=== PATIENT | female | born 1960 | race Caucasian/White ===

== ENCOUNTER 2020-10-20 08:00 | Outpatient (CLI) | payer OTHER | END 2020-10-20 23:59 | disposition home or self-care (01) | LOC: LAB.R 08:00 | PROVIDERS: ATTEND Family Medicine | DX: L03.115 Cellulitis of right lower limb (principal) | CPT/HCPCS: 81599; 87070; 87075; 87205 ==

== ENCOUNTER 2021-05-07 14:27 | Outpatient (CLI) | payer OTHER | END 2021-05-07 14:28 | disposition critical access hospital (66) | LOC: EMS 14:27 | DX: Z04.3 Encounter for examination and observation following other accident (principal); M79.605 Pain in left leg | CPT/HCPCS: A0425; A0427 ==

== ENCOUNTER 2021-05-07 14:50 | Inpatient (IN) | payer OTHER ==
--- NOTE | 2021-05-07 14:56 | ED Physician Documentation ---
PD HPI LOWER EXT INJURY - Stated complaint Stated Complaint: HIP PX - History obtained from History obtained from: Patient - Additional information Additional information: Relatively healthy 61-year-old woman with history of right hip fracture tripped and fell in the garden store and landed directly on the left hip with severe pain with any motion. On arrival she has had 200 mcg of fentanyl and is comfortable. No other injuries. No head or neck injury. Review of Systems Ten Systems: 10 systems reviewed and negative Constitutional: reports: Reviewed and negative Eyes: reports: Reviewed and negative Ears: reports: Reviewed and negative PD PAST MEDICAL HISTORY - Present Medications Home Medications: Ambulatory Orders Medication Instructions Recorded Confirmed No Known Home Medications 05/07/21 05/07/21 - Allergies Allergies/Adverse Reactions: Allergies Allergy/AdvReac Type Severity Reaction Status Date / Time No Known Drug Allergies Allergy Verified 05/07/21 15:11 PD ED PE NORMAL - Vitals Vital signs reviewed: Yes - General General: Alert and oriented X 3, No acute distress, Other (Comfortable at rest but cries with any motion) - HEENT HEENT: PERRL, EOMI - Neck Neck: Supple, no meningeal sign, No bony TTP - Cardiac Cardiac: RRR, No murmur - Respiratory Respiratory: No respiratory distress, Clear bilaterally - Abdomen Abdomen: Soft, Non tender - Back Back: No CVA TTP, No spinal TTP - Derm Derm: Normal color, Warm and dry - Extremities Extremities: Other (External rotation of L hip. NVI distal) - Neuro Neuro: Alert and oriented X 3, Normal speech Results - Vitals Vitals: Vital Signs - 24 hr 05/07/21 05/07/21 14:50 16:00 Temperature 36.9 C Heart Rate 78 92 Respiratory 16 14 Rate Blood Pressure 132/81 H 153/62 H O2 Saturation 97 97 Oxygen O2 Source Room air - EKG (time done) 1606 Rate: Rate (enter#) (96) Rhythm: NSR [place]: Normal Intervals: Normal [place], Prolonged QT (500msec) QRS: Low voltage Ischemia: Normal ST segments - Labs Labs: Laboratory Tests 05/07/21 05/07/21 05/07/21 15:02 15:02 15:02 WBC 5.7 RBC 4.44 Hgb 13.0 Hct 39.6 MCV 89.2 MCH 29.3 MCHC 32.8 RDW 12.4 Plt Count 225 MPV 8.6 Neut # (Auto) 2.8 Lymph # (Auto) 2.2 [place] # (Auto) 0.5 Eos # (Auto) 0.1 Baso # (Auto) 0.0 Absolute Nucleated RBC 0.00 Nucleated RBC % 0.0 PT INR Sodium 137 Potassium 3.4 L Chloride 104 Carbon Dioxide 24 Anion Gap 9.0 BUN 17 Creatinine 0.9 Estimated GFR (MDRD) 63 L Glucose 100 Calcium 9.3 Magnesium 2.2 Total Bilirubin 0.7 AST 25 ALT 27 Alkaline Phosphatase 75 Total Protein 7.0 Albumin 4.1 Globulin 2.9 Albumin/Globulin Ratio 1.4 Nasal Adenovirus (PCR) Nasal B. parapertussis DNA (PCR) Nasal Coronavir 229E PCR Nasal Coronavir HKU1 PCR Nasal Coronavir NL63 PCR Nasal Coronavir OC43 PCR Nasal Enterovir/Rhinovir PCR Nasal Influenza B PCR Nasal Influenza A PCR Nasal Parainfluen 1 PCR Nasal Parainfluen 2 PCR Nasal Parainfluen 3 PCR Nasal Parainfluen 4 PCR Nasal RSV (PCR) Nasal B.pertussis DNA PCR Nasal C.pneumoniae (PCR) Paulino Human Metapneumo PCR Nasal M.pneumoniae (PCR) Nasal SARS-CoV-2 (PCR) Blood Type A POSITIVE Antibody Screen NEGATIVE 05/07/21 05/07/21 15:07 15:55 WBC RBC Hgb Hct MCV MCH MCHC RDW Plt Count MPV Neut # (Auto) Lymph # (Auto) [place] # (Auto) Eos # (Auto) Baso # (Auto) Absolute Nucleated RBC Nucleated RBC % PT 12.8 H INR 1.2 Sodium Potassium Chloride Carbon Dioxide Anion Gap BUN Creatinine Estimated GFR (MDRD) Glucose Calcium Magnesium Total Bilirubin AST ALT Alkaline Phosphatase Total Protein Albumin Globulin Albumin/Globulin Ratio Nasal Adenovirus (PCR) NOT DETECTED Nasal B. parapertussis DNA (PCR) NOT DETECTED Nasal Coronavir 229E PCR NOT DETECTED Nasal Coronavir HKU1 PCR NOT DETECTED Nasal Coronavir NL63 PCR NOT DETECTED Nasal Coronavir OC43 PCR NOT DETECTED Nasal Enterovir/Rhinovir PCR NOT DETECTED Nasal Influenza B PCR NOT DETECTED Nasal Influenza A PCR NOT DETECTED Nasal Parainfluen 1 PCR NOT DETECTED Nasal Parainfluen 2 PCR NOT DETECTED Nasal Parainfluen 3 PCR NOT DETECTED Nasal Parainfluen 4 PCR NOT DETECTED Nasal RSV (PCR) NOT DETECTED Nasal B.pertussis DNA PCR NOT DETECTED Nasal C.pneumoniae (PCR) NOT DETECTED Paulino Human Metapneumo PCR NOT DETECTED Nasal M.pneumoniae (PCR) NOT DETECTED Nasal SARS-CoV-2 (PCR) NOT DETECTED Blood Type Antibody Screen - Rads (name of study) 1v cxr Radiology: EMP read contemporaneously (NAD) Procedures - General procedure General procedure: Left-sided fascia iliac a block done with real-time ultrasound guidance with 8 mL of 0.5% ropivacaine. PD MEDICAL DECISION MAKING - ED course Complexity details: d/w system sales consultant (gian Singletary IM admit, 1600) ED course: Healthy 61-year-old woman with an isolated left hip injury and has a fracture on x-ray. Dr. Abernathy will fix it tomorrow. Dr. Morales is admitting. Departure - Departure Disposition: 66 [facility] DC/Xfer Clinical Impression: Closed left hip fracture Condition: Serious
[2021-05-07 15:13] LABS: BASOPHILS % (AUTO) 0.5 %; EOSINOPHILS # (AUTO) 0.1 10^3/uL (0.0-0.7); EOSINOPHILS % (AUTO) 2.3 %; HCT - HEMATOCRIT 39.6 % (37.0-47.0); LYMPHOCYTES # (AUTO) 2.2 10^3/uL (1.5-3.5); MEAN CORPUSCULAR HEMOGLOBIN 29.3 pg (27.0-31.0); MEAN CORPUSCULAR HGB CONC 32.8 g/dL (32.0-36.0); MEAN CORPUSCULAR VOLUME 89.2 fL (81.0-99.0); MEAN PLATELET VOLUME 8.6 fL (7.9-10.8); MONOCYTES # (AUTO) 0.5 10^3/uL (0.0-1.0); MONOCYTES % (AUTO) 7.9 %; NEUTROPHILS # (AUTO) 2.8 10^3/uL (1.5-6.6); NEUTROPHILS % (AUTO) 49.8 %; PLT - PLATELET COUNT 225 10^3/uL (130-450); RED BLOOD COUNT 4.44 10^6/uL (4.20-5.40); RED CELL DISTRIBUTION WIDTH 12.4 % (12.0-15.0); WHITE BLOOD COUNT 5.7 x10^3/uL (4.8-10.8)
[2021-05-07] MEDS ORDERED: ROPIVACAINE 0.5% PF 20 ML AMPULE SUBQ STA (15:15)
[2021-05-07] MEDS ORDERED: HYDROmorphone 1 MG/ML CARPUJECT IVP STA ×2 (15:15→16:40)
[2021-05-07 15:25] LABS: ALBUMIN 4.1 g/dL (3.2-5.5); ALBUMIN/GLOBULIN RATIO 1.4 (1.0-2.2); BILIRUBIN,TOTAL 0.7 mg/dL (0.2-1.0); CALCIUM 9.3 mg/dL (8.5-10.3); CREATININE 0.9 mg/dL (0.4-1.0); MAGNESIUM 2.2 mg/dL (1.7-2.8); POTASSIUM 3.4 mmol/L (3.5-5.0)
[2021-05-07] MEDS ORDERED: KETAMINE 500 MG/10 ML VIAL IVP STA (15:31)
[2021-05-07 16:04] LABS: INR 1.2 (0.8-1.2); PT - PROTHROMBIN TIME 12.8 secs (9.9-12.6)
[2021-05-07] MEDS ORDERED: LORazepam 2 MG/ML VIAL IVP STA (16:06)
--- NOTE | 2021-05-07 16:07 | XRAY Report ---
PROCEDURE: Hip w/Pelvis 2-3V LT INDICATIONS: hip inj TECHNIQUE: AP pelvis with lateral view(s) of the left hip(s). COMPARISON: None. FINDINGS: Bones: There is a moderately displaced subcapital left femoral neck fracture. No cecilia left hip dislocation can be seen. No cecilia fracture of the bones of the pelvis can be seen. Prior right femoral neck fracture can be seen, with pinning. Degenerative changes are seen throughout, including the visualized lower lumbar spine. Soft tissues: The visualized bowel gas pattern is normal. No suspicious soft tissue calcifications. IMPRESSION: Moderately displaced subcapital left femoral neck fracture. If it would be helpful for clinical management decision making, please consider a dedicated CT for fu rther evaluation. Reviewed by: Jorgito Brasher MD on 05/07/2021 3:05 PM ONELIA Approved by: Jorgito Brasher MD on 05/07/2021 3:05 PM ONELIA Station ID: [id number]
--- NOTE | 2021-05-07 16:08 | XRAY Report ---
PROCEDURE: Chest 1 View X-Ray INDICATIONS: Trauma TECHNIQUE: One view of the chest was acquired. COMPARISON: None FINDINGS: Surgical changes and devices: None. Lungs and pleura: No pleural effusions or pneumothorax can be seen on this supine study. However, th e inferior most right costophrenic angle is not included on this study. Lungs are clear. Mediastinum: Mediastinal contours appear normal. Heart size is normal. Bones and chest wall: No suspicious bony lesions. Age-appropriate degenerative changes are seen. R adiopaque foci can be seen involving the right axilla and the right chest wall. IMPRESSION: Limited plain film study demonstrating no acute abnormality. Reviewed by: Jorgito Brasher MD on 05/07/2021 3:06 PM ONELIA Approved by: Jorgito Brasher MD on 05/07/2021 3:06 PM ONELIA Station ID: [id number]
[2021-05-07 16:10] LABS: B. PARAPERTUSSIS- RESP PCR PAN NOT DETECTED; B. PERTUSSIS- RESP PCR PANEL NOT DETECTED; C. PNEUMONIAE- RESP PCR PANEL NOT DETECTED; CORONAVIRUS 229E-RESP PCR NOT DETECTED; CORONAVIRUS HKU1-RESP PCR NOT DETECTED; CORONAVIRUS NL63-RESP PCR NOT DETECTED; CORONAVIRUS OC43-RESP PCR NOT DETECTED; HUMAN METAPNEUMOVIRUS NOT DETECTED; INFLUENZA A- RESP PCR PANEL NOT DETECTED; INFLUENZA B - RESP PCR PANEL NOT DETECTED; M. PNEUMONIAE- RESP PCR PANEL NOT DETECTED; PARAINFLUENZA VIRUS 1 NOT DETECTED; PARAINFLUENZA VIRUS 2 NOT DETECTED; PARAINFLUENZA VIRUS 3 NOT DETECTED; PARAINFLUENZA VIRUS 4 NOT DETECTED; RHINOVIRUS/ENTEROVIRUS NOT DETECTED; RSV- RESP PCR PANEL NOT DETECTED; SARS-CoV-2 -RESP PCR PANEL NOT DETECTED
[2021-05-07] MEDS ORDERED: ONDANSETRON ODT 4 MG TABLET TL PRN (16:26)
[2021-05-07] MEDS ORDERED: POTASSIUM CHLORIDE 20 MEQ TABLET PO ONE (16:29)
--- NOTE | 2021-05-07 17:03 | HISTORY & PHYSICAL EXAMINATION ---
Chief Complaint - Chief Complaint Chief Complaint: fall with hip pain <MoralesZeny Ilda - Last Filed: 05/08/21 07:23> - Chief Complaint Chief Complaint: Fall with left hip pain. <Kemal Mejia - Last Filed: 05/08/21 07:25> History of Present Illness - Admitted From Admitted From:: garden store via EMS - History Obtained From Records Reviewed: [facility] History obtained from: Dr. Ibarra and patient Exam Limitations: none <Zeny Morales - Last Filed: 05/08/21 07:23> - Admitted From Admitted From:: Home <Kemal Mejia - Last Filed: 05/08/21 07:25> - History of Present Illness HPI Comment/Other: This is a 61-year-old female who has no major medical illnesses and is not on any medications. The only encounter I can find in our medical record system is a walk-in clinic visit in October 2020 where she was seen for cellulitis of the heel. They do not list a primary care provider for her. She does have a previous history of a fall with a hip fracture. Today she was in a garden store, and tripped over a wagon in the garden store, landed on her left hip with severe pain. She was brought in by ambulance. She required fentanyl because of the severe pain. She was seen by our emergency room provider where a temperature was 36.9. Heart rate 78. Respirations 16. Blood pressure 132/81. 97% saturated on room air. Physical exam had an alert oriented female, negative pulmonary/cardiac/abdomen. External rotation of the left hip. Distal pulses intact. Labs were essentially normal, coronavirus negative, and a hip film showed a moderately displaced subcapital left femoral neck fracture. The ER provider did speak to orthopedics. They are asking us to place the patient under our service for admission and they will see the patient in consult. From a preoperative cardiac evaluation perspective the patient has no history of [place], arrhythmia, atrial fibrillation, valvular heart disease, pulmonary disease or renal disease. This document was made in part using voice recognition software. While efforts are made to proofread this document, sound alike and grammatical errors may occur. (Zeny Morales) This is a 61-year-old female with no significant past medical history who presents today after a fall complaining of left hip pain. She was at her daughter's workplace when she stumbled over a handle on the ground and fell on her left side. She immediately complained of left-sided hip pain and minor left arm pain. She denies any syncope or loss of consciousness. She did not feel dizzy or lightheaded prior to the fall. She currently states that her left hip pain is controlled with the opiates that she is receiving. She states she fell back in July 2011 and suffered a right hip fracture at that time. She reports she is normally quite active. She denies any cardiac history including coronary artery disease, arrhythmia, heart failure. She is able to walk up a flight of stairs and do cleaning around the home without any chest pain. (Kemal Mejia) History - Past Medical History MRSA Hx?: No - Past Surgical History Ortho: reports: Hip replacement - Family & Social History Living arrangement: At home Social History Notes: never smoked, no hx of alcohol abuse. <Zeny Morales - Last Filed: 05/08/21 07:23> - Family & Social History Family History Comment/Other: Her mother had a history a history of breast cancer. She also had COPD and was a smoker. Her father had multiple strokes and ultimately from a large stroke. Social History Notes: She has never smoked and denies alcohol use and illicit drug use. She does not currently work. <Kemal Mejia - Last Filed: 05/08/21 07:25> Meds/Allgy <Zeny Morales - Last Filed: 05/08/21 07:23> <Kemal Mejia - Last Filed: 05/08/21 07:25> - Home Medications Home Medications: Ambulatory Orders Medication Instructions Recorded Confirmed No Known Home Medications 05/07/21 05/07/21 - Allergies Allergies/Adverse Reactions: Allergies Allergy/AdvReac Type Severity Reaction Status Date / Time No Known Drug Allergies Allergy Verified 05/07/21 15:11 Review of Systems - Constitutional Constitutional: denies: Fever, Chills - Cardiovascular Cariovascular: denies: Chest pain, Lightheadedness, Syncope, Exertional dyspnea, Decr. exercise tolerance - Respiratory Respiratory: denies: Cough, SOB at rest, SOB with exertion - Gastrointestinal Gastrointestinal: denies: Abdominal pain, Nausea, Vomiting - Genitourinary Genitourinary: denies: Dysuria, Frequency, Urgency, Hematuria - Musculoskeletal Musculoskeletal: reports: Limited range of motion, Joint pain. denies: Muscle pain - Integumentary Integumentary: denies: Rash - Neurological Neurological: reports: Headache. denies: General weakness, Focal weakness, Dizziness, Numbness - Hematologic/Lymphatic Hematologic/Lymphatic: denies: Bleeding tendencies - All Other Systems All Other Systems: reports: Reviewed and negative <Kemal Mejia - Last Filed: 05/08/21 07:25> <Zeny Morales - Last Filed: 05/08/21 07:23> Prior Level of Functionality: Independent with activities of daily living. Able to dress herself, feed herself, drive a car, pay bills, clean her house, etc. (Zeny Morales) Exam - Vital Signs Reviewed Vital Signs: Yes <Zeny Morales - Last Filed: 05/08/21 07:23> - Vital Signs Reviewed Vital Signs: Yes - Physical Exam General Appearance: positive: No acute distress, Alert Eyes Bilateral: positive: Normal inspection, Conjunctivae nml ENT: positive: ENT inspection nml Neck: positive: Nml inspection Respiratory: positive: No respiratory distress. negative: Wheezes, Rales Cardiovascular: positive: Regular rate & rhythm, No murmur. negative: Tachycardia Abdomen: positive: Non-tender, No distention. negative: Tenderness Skin: positive: Warm, Dry, Other (There is a small 1 cm abrasion over the left elbow.) Extremities: positive: No pedal edema, Other (The left lower extremity is shortened and externally rotated. No tenderness, edema or erythema over the left hip.) Neurologic/Psychiatric: positive: Sensation nml. negative: Disoriented to person, Disoriented to place <Kemal Mejia - Last Filed: 05/08/21 07:25> - Vital Signs Vital Signs: Vital Signs x48h Temp Pulse Pulse Resp BP BP Pulse Ox 05/07/21 18:04 36.4 C L 93 130/67 97 05/07/21 17:13 96 05/07/21 17:12 143/78 H 98 05/07/21 17:00 96 11 L 126/65 97 05/07/21 16:46 88 11 L 145/71 H 96 05/07/21 16:00 92 13 131/79 H 95 05/07/21 15:30 96 165/114 H 97 05/07/21 14:50 36.9 C 78 16 132/81 H 97 Conclusion/Plan - Problem List (1) Closed left hip fracture Conclusion/Plan: This is a simple mechanical fall with no nefarious history of syncope, vasovagal symptoms. She has no cardiac disease. She is on no medications. However she does have a history of a previous hip fracture with no documentation of osteoporosis. Plan: Inpatient admission Orthopedic consult Probable ORIF or pinning tomorrow She can eat dinner tonight and be n.p.o. after midnight Start DVT prophylaxis tomorrow Consider osteoporosis treatment that is definitive in the form of Reclast or Zometa in the next few days. Encourage calcium and vitamin D on a regular basis. Qualifiers: Encounter type: initial encounter Qualified Code(s): S72.002A - Fracture of unspecified part of neck of left femur, initial encounter for closed fracture (2) Fall due to stumbling Conclusion/Plan: Mechanical fall. Happening in a garden store as she tripped over a wagon. At this time I am not concerned about syncope or a work-up for arrhythmia. Qualifiers: Encounter type: initial encounter Qualified Code(s): W01.0XXA - Fall on same level from slipping, tripping and stumbling without subsequent striking against object, initial encounter - Lab Results Lab results reviewed: Yes Yelp Bones: 05/07/21 15:02 05/07/21 15:02 - Diagnostic Imaging Results Diagnostic Imaging Results: positive: Final report reviewed - EKG Results EKG Interpreted Independently: No EKG Comparison: No prior EKG <Zeny Morales - Last Filed: 05/08/21 07:23> - Problem List (1) Preoperative examination Conclusion/Plan: She reports no angina or dyspnea and is able to function greater than 4 METS. Her EKG reveals a sinus rhythm with a prolonged ID interval consistent with a first-degree AV block. Her QTC is prolonged. Her SOMMER perioperative risk score is 0.1%. At this point in time, she is medically optimized to proceed with surgical intervention. - Lab Results Fish Bones: 05/08/21 04:55 05/08/21 04:55 - EKG Results EKG Interpreted Independently: Yes <Kemal Mejia - Last Filed: 05/08/21 07:25> - EKG Results EKG Findings: Normal sinus rhythm. No Acute ischemic changes (Zeny Morales) Core Measures - Anticipated LOS I expect patient to be DC'd or transferred within 96 hours.: Yes - DVT/VTE - Prophylaxis VTE/DVT Device ordered at admit?: Yes <Zeny Morales - Last Filed: 05/08/21 07:23> - Anticipated LOS I expect patient to be DC'd or transferred within 96 hours.: Yes - DVT/VTE - Prophylaxis VTE/DVT Device ordered at admit?: Yes VTE/DVT Prophylaxis med ordered at admit?: Yes <Kemal Mejia - Last Filed: 05/08/21 07:25> - Issues Hospital Issues and Management Plan: 61-year-old female presents after mechanical fall found to the left hip fracture. She will be admitted for surgical intervention and pain control. (Kemal Mejia)
[2021-05-07] MEDS: MORPHINE 2 MG/ML CARPUJECT IVP PRN (18:06)
[2021-05-07] MEDS: SODIUM CHLORIDE FLUSH 0.9% 10 ML SYRINGE IVP PRN (18:06)
[2021-05-07] MEDS: SODIUM CHLORIDE FLUSH 0.9% 10 ML SYRINGE IVP SCH (18:14)
[2021-05-07] MEDS: ACETAMINOPHEN 325 MG TABLET PO PRN ×2 (18:53→22:51)
[2021-05-07] MEDS: oxyCODONE 5 MG TABLET PO PRN ×2 (18:53→22:51)
--- NOTE | 2021-05-07 18:54 | HISTORY & PHYSICAL EXAMINATION ---
HPI - History Obtained From History obtained from: Patient, Family Exam limitations: No limitations - History of Present Illness Severity at the worst: reports: Severe Pain Quality: reports: Sharp, Cramping Timing: reports: Abrupt onset HPI Comment/Other: This is a 61-year-old woman who sustained a ground level fall at [email or web address] in [place] approximately 2:15 PM today. She tripped over a wagon handle and fell onto the gravel, left side. She had immediate pain to the left hip area and inability to bear weight on her left leg. Her daughter is employed at [employer] and was working today but did not witness the fall. She was brought to [facility] by emergency transport. She is noted some mild pain to left elbow but most of her pain is to the left hip. She denies chest pain, shortness of breath, dizziness or syncope associated with the fall. She states she was not looking at the ground when she tripped over the wagon handle. She has had a previous ground-level fall with fracture of her femoral neck right hip in 2010. The fall in 2010 occurred at the [employer]. The patient's general physical activity has gradually declined over the past 10 years. Most of her activities are sedentary including crafts and hobbies at home. She has gained weight and does have a family history of obesity. The patient general health has been relatively good but she does not see physicians.He denies previous problems to her left hip. She has had some pain to her right hip. PMH/PSH - Past Medical History MRSA Hx?: No - Past Surgical History Ortho: positive: Hip replacement Social & Family Hx - Social History Does the pt smoke?: No Smoking Status: Never smoker Does the pt drink ETOH?: No Does the pt have substance abuse?: No Meds/Allgy - Home Medications Home Medications: Ambulatory Orders Medication Instructions Recorded Confirmed No Known Home Medications 05/07/21 05/07/21 - Allergies Allergies/Adverse Reactions: Allergies Allergy/AdvReac Type Severity Reaction Status Date / Time No Known Drug Allergies Allergy Verified 05/07/21 15:11 Exam - Vital Signs Vital Signs: Vital Signs x48h Temp Pulse Pulse Resp BP BP Pulse Ox 05/07/21 18:04 36.4 C L 93 130/67 97 05/07/21 17:13 96 05/07/21 17:12 143/78 H 98 05/07/21 17:00 96 11 L 126/65 97 05/07/21 16:46 88 11 L 145/71 H 96 05/07/21 16:00 92 13 131/79 H 95 05/07/21 15:30 96 165/114 H 97 05/07/21 14:50 36.9 C 78 16 132/81 H 97 - Physical Exam General Appearance: positive: Severe distress Neck: positive: Nml inspection Respiratory: positive: Chest non-tender, No respiratory distress Cardiovascular: positive: Regular rate & rhythm Peripheral Pulses: positive: 2+ Abdomen: positive: Non-tender Skin: positive: Color nml, Warm. negative: Dry (Marked pain any movement to left hip; shortening and external rotation left leg. 4 to 5 cm area of ecchymosis without hematoma just below greater trochanter left hip. Left elbow with mild tenderness and pain with movement) Neurologic/Psychiatric: positive: Oriented x3, Motor nml, Sensation nml Results - Lab Results Fish Bones: 05/07/21 15:02 05/07/21 15:02 Other Lab Results: Lab Results x24hrs 05/07/21 05/07/21 05/07/21 Range/Units 15:55 15:07 15:02 WBC (4.8-10.8) x10^3/uL RBC (4.20-5.40) 10^6/uL Hgb (12.0-16.0) g/dL Hct (37.0-47.0) % MCV (81.0-99.0) fL MCH (27.0-31.0) pg MCHC (32.0-36.0) g/dL RDW (12.0-15.0) % Plt Count (130-450) 10^3/uL MPV (7.9-10.8) fL Neut # (Auto) (1.5-6.6) 10^3/uL Lymph # (Auto) (1.5-3.5) 10^3/uL Evangeline # (Auto) (0.0-1.0) 10^3/uL Eos # (Auto) (0.0-0.7) 10^3/uL Baso # (Auto) (0.0-0.1) 10^3/uL Absolute Nucleated RBC x10^3/uL Nucleated RBC % /100WBC PT 12.8 H (9.9-12.6) secs INR 1.2 (0.8-1.2) Sodium (135-145) mmol/L Potassium (3.5-5.0) mmol/L Chloride (101-111) mmol/L Carbon Dioxide (21-32) mmol/L Anion Gap (6-13) BUN (6-20) mg/dL Creatinine (0.4-1.0) mg/dL Estimated GFR (MDRD) (>89) Glucose (70-100) mg/dL Calcium (8.5-10.3) mg/dL Magnesium (1.7-2.8) mg/dL Total Bilirubin (0.2-1.0) mg/dL AST (10-42) IU/L ALT (10-60) IU/L Alkaline Phosphatase (42-121) IU/L Total Protein (6.7-8.2) g/dL Albumin (3.2-5.5) g/dL Globulin (2.1-4.2) g/dL Albumin/Globulin Ratio (1.0-2.2) Nasal Adenovirus (PCR) NOT DETECTED Nasal B. parapertussis DNA (PCR) NOT DETECTED Nasal Coronavir 229E PCR NOT DETECTED Nasal Coronavir HKU1 PCR NOT DETECTED Nasal Coronavir NL63 PCR NOT DETECTED Nasal Coronavir OC43 PCR NOT DETECTED Nasal Enterovir/Rhinovir PCR NOT DETECTED Nasal Influenza B PCR NOT DETECTED Nasal Influenza A PCR NOT DETECTED Nasal Parainfluen 1 PCR NOT DETECTED Nasal Parainfluen 2 PCR NOT DETECTED Nasal Parainfluen 3 PCR NOT DETECTED Nasal Parainfluen 4 PCR NOT DETECTED Nasal RSV (PCR) NOT DETECTED Nasal B.pertussis DNA PCR NOT DETECTED Nasal C.pneumoniae (PCR) NOT DETECTED Paulino Human Metapneumo PCR NOT DETECTED Nasal M.pneumoniae (PCR) NOT DETECTED Nasal SARS-CoV-2 (PCR) NOT DETECTED Blood Type A POSITIVE Antibody Screen NEGATIVE 05/07/21 05/07/21 Range/Units 15:02 15:02 WBC 5.7 (4.8-10.8) x10^3/uL RBC 4.44 (4.20-5.40) 10^6/uL Hgb 13.0 (12.0-16.0) g/dL Hct 39.6 (37.0-47.0) % MCV 89.2 (81.0-99.0) fL MCH 29.3 (27.0-31.0) pg MCHC 32.8 (32.0-36.0) g/dL RDW 12.4 (12.0-15.0) % Plt Count 225 (130-450) 10^3/uL MPV 8.6 (7.9-10.8) fL Neut # (Auto) 2.8 (1.5-6.6) 10^3/uL Lymph # (Auto) 2.2 (1.5-3.5) 10^3/uL Evangeline # (Auto) 0.5 (0.0-1.0) 10^3/uL Eos # (Auto) 0.1 (0.0-0.7) 10^3/uL Baso # (Auto) 0.0 (0.0-0.1) 10^3/uL Absolute Nucleated RBC 0.00 x10^3/uL Nucleated RBC % 0.0 /100WBC PT (9.9-12.6) secs INR (0.8-1.2) Sodium 137 (135-145) mmol/L Potassium 3.4 L (3.5-5.0) mmol/L Chloride 104 (101-111) mmol/L Carbon Dioxide 24 (21-32) mmol/L Anion Gap 9.0 (6-13) BUN 17 (6-20) mg/dL Creatinine 0.9 (0.4-1.0) mg/dL Estimated GFR (MDRD) 63 L (>89) Glucose 100 (70-100) mg/dL Calcium 9.3 (8.5-10.3) mg/dL Magnesium 2.2 (1.7-2.8) mg/dL Total Bilirubin 0.7 (0.2-1.0) mg/dL AST 25 (10-42) IU/L ALT 27 (10-60) IU/L Alkaline Phosphatase 75 (42-121) IU/L Total Protein 7.0 (6.7-8.2) g/dL Albumin 4.1 (3.2-5.5) g/dL Globulin 2.9 (2.1-4.2) g/dL Albumin/Globulin Ratio 1.4 (1.0-2.2) Nasal Adenovirus (PCR) Nasal B. parapertussis DNA (PCR) Nasal Coronavir 229E PCR Nasal Coronavir HKU1 PCR Nasal Coronavir NL63 PCR Nasal Coronavir OC43 PCR Nasal Enterovir/Rhinovir PCR Nasal Influenza B PCR Nasal Influenza A PCR Nasal Parainfluen 1 PCR Nasal Parainfluen 2 PCR Nasal Parainfluen 3 PCR Nasal Parainfluen 4 PCR Nasal RSV (PCR) Nasal B.pertussis DNA PCR Nasal C.pneumoniae (PCR) Paulino Human Metapneumo PCR Nasal M.pneumoniae (PCR) Nasal SARS-CoV-2 (PCR) Blood Type Antibody Screen - Diagnostic Imaging Results Diagnostic Imaging Results: negative: Read independently (Completely displaced femoral neck fracture left hip) Impression/Plan - Problem List Problem List: 1. Displaced femoral neck fracture left hip I discussed the risks, goals and likelihood of achieving goals, alternatives of surgery, disability and rarely . The plan is a hemiarthroplasty of the left hip. Her immediate complications are infection, dislocation and periprosthetic fracture. Other acute complications are adverse reaction to medication, anesthesia, pulmonary embolus, myocardial infarction. Long-term complications are potential need for revision arthroplasty. Patient is in agreement to the surgery has signed informed consent. Also discussed the same with the daughter who was present and she is in agreement. 2. Obesity 3. Osteoporosis This needs to be treated by primary care 4. Left elbow pain: We will order x-ray of left elbow Patient has been evaluated by her hospitalist; no contraindications to surgery. The plan is to do her surgery tomorrow.
--- NOTE | 2021-05-07 20:27 | XRAY Report ---
PROCEDURE: Elbow 3 View LT INDICATIONS: pain left elbow after fall TECHNIQUE: 3 views of the elbow were acquired. COMPARISON: None. FINDINGS: Bones: No definite fractures or dislocations but there is mild irregularity on one of the 3 views of the radial head, worrisome for representing an occult fracture.. No suspicious bony lesions. Soft tissues: Moderately large anterior elbow joint effusion. No suspicious soft tissue calcificatio ns. IMPRESSION: No definite osseous trauma found however there is a relatively large joint effusion which generally i s associated with fracture that is not visualized in this clinical circumstance. Follow-up delayed pl ain films may assist in identifying the site of injury. Presumed fracture until proven otherwise. MR scanning provides the most accurate detection for hidden fracture through the bones and soft tissues. It is appreciably more accurate than CT scanning. Follow-up elective MR scanning may be warranted. T his also would identify accurately evidence of ligamentous injury.. Reviewed by: Justino Puente MD on 05/07/2021 8:26 PM PDT Approved by: Justino Puente MD on 05/07/2021 8:26 PM PDT Station ID: [id number]
--- NOTE | 2021-05-07 21:17 | ANESTHESIA ---
Pre-Anesthesia VS, & Labs - Diagnosis Left Hip Fracture - Procedure Left Hip randall arthroplasty Vital Signs: Temp Pulse Resp BP Pulse Ox 36.4 C L 93 11 L 130/67 97 05/07/21 18:04 05/07/21 18:04 05/07/21 17:00 05/07/21 18:04 05/07/21 18:04 Height: 5 ft 11 in Weight (kg): 101.5 kg Body Mass Index: 31.1 BMI Classification: Obese - NPO >8 hours - Is Patient ?: No - Lab Results Current Lab Results: Laboratory Tests 05/07/21 15:55: PT 12.8 H, INR 1.2 05/07/21 15:02: Blood Type A POSITIVE, Antibody Screen NEGATIVE 05/07/21 15:02: Sodium 137, Potassium 3.4 L, Chloride 104, Carbon Dioxide 24, Anion Gap 9.0, BUN 17, Creatinine 0.9, Estimated GFR (MDRD) 63 L, Glucose 100, Calcium 9.3, Magnesium 2.2, Total Bilirubin 0.7, AST 25, ALT 27, Alkaline Phosphatase 75, Total Protein 7.0, Albumin 4.1, Globulin 2.9, Albumin/Globulin Ratio 1.4 05/07/21 15:02: WBC 5.7, RBC 4.44, Hgb 13.0, Hct 39.6, MCV 89.2, MCH 29.3, MCHC 32.8, RDW 12.4, Plt Count 225, MPV 8.6, Neut # (Auto) 2.8, Lymph # (Auto) 2.2, [place] # (Auto) 0.5, Eos # (Auto) 0.1, Baso # (Auto) 0.0, Absolute Nucleated RBC 0.00, Nucleated RBC % 0.0 Lab results reviewed: Yes Fish Bones: 05/08/21 04:55 05/08/21 04:55 Home Medications and Allergies Home Medications: Ambulatory Orders No Known Home Medications 05/07/21 Active Medications Acetaminophen (Acetaminophen 325 Mg Tablet) 650 mg PO Q4HR PRN PRN Reason: Pain 1 to 4 Last Admin: 05/07/21 18:53 Dose: 650 mg Documented by: Morphine Sulfate (Morphine 2 Mg/Ml Carpuject) 2 mg IVP Q2HR PRN PRN Reason: Pain 8 to 10 Last Admin: 05/07/21 18:06 Dose: 2 mg Documented by: Ondansetron HCl (Ondansetron Odt 4 Mg Tablet) 4 mg TL Q6HR PRN PRN Reason: Nausea / Vomiting Ondansetron HCl (Ondansetron 4 Mg/2 Ml Vial) 4 mg IVP Q6HR PRN PRN Reason: Nausea / Vomiting Oxycodone HCl (Oxycodone 5 Mg Tablet) 5 mg PO Q4HR PRN PRN Reason: Pain 5 to 7 Last Admin: 05/07/21 18:53 Dose: 5 mg Documented by: Sodium Chloride (Sodium Chloride Flush 0.9% 10 Ml Syringe) 10 ml IVP PRN PRN PRN Reason: NEEDED PER PROVIDER ORDERS Last Admin: 05/07/21 18:06 Dose: 10 ml Documented by: Sodium Chloride (Sodium Chloride Flush 0.9% 10 Ml Syringe) 10 ml IVP 0100,0900,1700 ANA Last Admin: 05/07/21 18:14 Dose: 10 ml Documented by: No Known Home Medications 05/07/21 Allergies/Adverse Reactions: Allergies Allergy/AdvReac Type Severity Reaction Status Date / Time No Known Drug Allergies Allergy Verified 05/07/21 15:11 Anes History & Medical History - Anesthetic History Anesthesia Complications: reports: No previous complications - Medical History Cardiovascular: reports: None Pulmonary: reports: Sleep apnea (probable, patient snores with witnessed apnea) Gastrointestinal: reports: None Urinary: reports: None Neuro: reports: None Musculoskeletal: reports: None Endocrine/Autoimmune: reports: None Blood Disorders: reports: None Skin: reports: None Smoking Status: Never smoker Psychosocial: reports: No issues indicated History of Cancer?: No - Surgical History Orthopedic: reports: Hip replacement Exam General: Alert, Oriented x3, Cooperative, No acute distress Dental: WNL Mouth Openin Fingerbreadth Neck Mobility: Normal Mallampati classification: III Mental/Cognitive Status: Alert/Oriented X3, Normal for patient Plan Anesthesia Type: Spinal (Will hold morning dose of lovenox. Ok to resume after surgery.), Fascia Iliaca Block (Left) Regional Block: Per Surgeon's request for Post Op pain control Consent for Procedure(s) Verified and Reviewed: Yes Code Status: Attempt Resuscitation ASA classification: 2-Mild systemic disease Is this case an emergency?: No
[2021-05-07] MEDS: ONDANSETRON 4 MG/2 ML VIAL IVP PRN (22:51)
[2021-05-08] MEDS: SODIUM CHLORIDE FLUSH 0.9% 10 ML SYRINGE IVP SCH ×3 (00:40→20:03)
[2021-05-08] MEDS: ACETAMINOPHEN 325 MG TABLET PO PRN ×2 (03:02→22:13)
[2021-05-08] MEDS: oxyCODONE 5 MG TABLET PO PRN (03:02)
[2021-05-08 05:23] LABS: BASOPHILS % (AUTO) 0.4 %; EOSINOPHILS # (AUTO) 0.1 10^3/uL (0.0-0.7); EOSINOPHILS % (AUTO) 0.9 %; HCT - HEMATOCRIT 36.8 % (37.0-47.0); HGB - HEMOGLOBIN 12.4 g/dL (12.0-16.0); LYMPHOCYTES # (AUTO) 0.9 10^3/uL (1.5-3.5); LYMPHOCYTES % (AUTO) 8.4 %; MEAN CORPUSCULAR HEMOGLOBIN 29.2 pg (27.0-31.0); MEAN CORPUSCULAR HGB CONC 33.7 g/dL (32.0-36.0); MEAN CORPUSCULAR VOLUME 86.8 fL (81.0-99.0); MEAN PLATELET VOLUME 8.7 fL (7.9-10.8); MONOCYTES # (AUTO) 0.7 10^3/uL (0.0-1.0); MONOCYTES % (AUTO) 5.9 %; NEUTROPHILS # (AUTO) 9.4 10^3/uL (1.5-6.6); NEUTROPHILS % (AUTO) 84.1 %; PLT - PLATELET COUNT 208 10^3/uL (130-450); RED BLOOD COUNT 4.24 10^6/uL (4.20-5.40); RED CELL DISTRIBUTION WIDTH 12.5 % (12.0-15.0); WHITE BLOOD COUNT 11.1 x10^3/uL (4.8-10.8)
[2021-05-08 05:33] LABS: CALCIUM 8.8 mg/dL (8.5-10.3); CREATININE 0.7 mg/dL (0.4-1.0)
[2021-05-08] MEDS: MORPHINE 2 MG/ML CARPUJECT IVP PRN ×2 (07:52→11:46)
[2021-05-08] MEDS: ONDANSETRON 4 MG/2 ML VIAL IVP PRN (07:54)
[2021-05-08] MEDS ORDERED: ENOXAPARIN 40 MG/0.4 ML SYRINGE SUBQ SCH (09:00)
[2021-05-08] MEDS ORDERED: BUPIVACAINE 0.5%-EPI 1:200000 PF 30 ML VIAL ONE (10:36)
[2021-05-08] MEDS ORDERED: PROPOFOL 1000 MG/100 ML 1,000 MG/100 ML BOTTLE IV ONE (11:27)
[2021-05-08] MEDS ORDERED: fentaNYL 100 MCG/2 ML VIAL ONE ×4 (11:28→17:32)
[2021-05-08] MEDS ORDERED: MIDAZOLAM 2 MG/2 ML VIAL ONE (11:28)
[2021-05-08] MEDS ORDERED: KETAMINE 500 MG/10 ML VIAL ONE (11:28)
[2021-05-08] MEDS ORDERED: WATER FOR INJECTION,STERILE 10 ML MC ONE (11:31)
[2021-05-08] MEDS: SODIUM CHLORIDE FLUSH 0.9% 10 ML SYRINGE IVP PRN (11:46)
[2021-05-08] MEDS ORDERED: DEXAMETHASONE 10 MG/ML VIAL ONE (12:32)
[2021-05-08] MEDS ORDERED: LACTATED RINGERS 1,000 ML IV ONE (12:36)
[2021-05-08] MEDS ORDERED: PROCHLORPERAZINE 10 MG/2 ML VIAL IVP PRN (14:26)
[2021-05-08] MEDS ORDERED: ONDANSETRON 4 MG/2 ML VIAL IVP PRN ×2 (14:26→19:15)
[2021-05-08] MEDS ORDERED: ACETAMINOPHEN 1,000 MG/100 ML 100 ML IV PRN (14:26)
[2021-05-08] MEDS ORDERED: SODIUM CHLORIDE FLUSH 0.9% 10 ML SYRINGE IVP PRN (14:26)
[2021-05-08] MEDS ORDERED: BUPIVACAINE 0.5% PF 10 ML VIAL ONE (14:39)
[2021-05-08] MEDS ORDERED: HYDROmorphone 1 MG/ML CARPUJECT ONE (15:46)
[2021-05-08] MEDS ORDERED: ROCURONIUM 50 MG/5 ML VIAL ONE (16:35)
[2021-05-08] MEDS ORDERED: PHENYLEPHRINE 10 MG/ML VIAL ONE (16:42)
[2021-05-08] MEDS ORDERED: ROPIVACAINE 0.5% PF 20 ML AMPULE ONE (17:20)
[2021-05-08] MEDS ORDERED: SODIUM CHLORIDE 0.9% 10 ML VIAL IVP ONE (17:21)
[2021-05-08] MEDS ORDERED: ONDANSETRON 4 MG/2 ML VIAL ONE (17:21)
[2021-05-08] MEDS ORDERED: SUGAMMADEX 200 MG/2 ML VIAL IVP ONE (17:21)
--- NOTE | 2021-05-08 17:34 | OPERATIVE REPORT ---
Operative Report - General Admit Date: 05/07/21 Procedure Date: 05/08/21 Planned Procedure: Left hip hemiarthroplasty Pre-Op Diagnosis: Completely displaced, Garden 4, femoral neck fracture left hip Procedure Performed: Cemented left hip hemiarthroplasty using [employer] Synergy, 13 standard offset stem 54 mm +0 unipolar head, stem centralizer, distal femoral canal plug Post Op Diagnosis: Same as preoperative diagnosis - Procedure Note Primary Surgeon: Barry Abernathy MD Secondary Surgeon: Stevenson NATION Anesthesia Provider: Zarina Inman CRNA Anesthesia Technique: General ET tube Estimated Blood Loss (mL): 100 Indications: This is a 61-year-old woman with a ground-level fall yesterday, sustaining isolated injury to left hip primarily. She had pain full movement left hip, shortening and external rotation deformity left leg, x-rays which showed a completely displaced femoral neck fracture left hip. She has a history of right hip fracture approximately 10 years ago. She has untreated osteoporosis. She also has obesity. She had preoperative medical evaluation. Findings: Completely displaced, unstable femoral neck fracture left hip with relatively normal acetabular articular cartilage. She did have osteopenia and for this reason a cemented femoral component was inserted Complications: None - Other Other Information/Narrative: The patient was brought to the operating room, given a general anesthetic. She was placed on the operating table initially supine, then turned to a lateral decubitus position with the left hip facing superiorly. She was secured in the lateral decubitus position using the pegboard and PEG holders to pelvis and torso. The left hip and lower extremity were prepped and draped in a sterile manner in the usual fashion. A timeout procedure was performed by the entire operating room team and all were in agreement. A longitudinal incision was made over the lateral aspect of the left hip, centered about the greater trochanter. The skin, subcutaneous tissue and fascia conor were split. A self-retaining retractor was inserted. The myotendinous junction of the anterior one third of the gluteus medius was released. The anterior hip capsule was exposed split longitudinally and then divided transversely in a T-shaped fashion. Part of the anterior hip capsule was expose d. The femoral head was removed using a corkscrew and bone hook, measured 54 mm in diameter with calipers. The acetabulum was cleared of some small capsular fracture fragments. The left leg was placed in an anterior pocket. The femoral canal was opened with a box osteotome, starting reamer and then broaching up to a 14 mm broach. The broaching was done in 1 mm increments. The broach was inse rted with slight anteversion. Because of her thin cortex, a cemented technique was elected. A canal plug was inserted distally, approximately 19 to 20 cm distal to the osteotomy. The canal was cleaned with a brush and pulsatile lavage, dried with a suction pad and lap pad. A 13 Synergy component was then inserted after using a cement gun to insert the cement, pressurizing the cement. The proximal portion of the stem was pushed laterally to provide some valgus, set flush with femoral neck cortex. Trial reduction was performed with the 54 mm +0 unipolar head and was found to be stable and had good leg length tension. A permanent 54 mm unipolar head was then impacted on the femoral trunnion, reduced, taken through range of motion is found to have good motion and good stability as well as leg length tension. The wound was irrigated with dilute Betadine followed by saline irrigation. The anterior capsule and gluteus medius were both repaired with #1 strata fix suture, fascia conor closed with #1 strata fix suture, subcutaneous tissue closed with 2 O strata fix suture, subcuticular closure with 3 O strata fix suture. Finally, Dermabond was applied to the skin, silver impregnated dressing after the Dermabond had hardened. She received 2 g of Ancef and 1 g of trans-Kevin acid, tolerated procedure well. Physician paralegal assistant was utilized, medically necessary, to provide the necessary exposure, protection of vital structures, facilitate with dislocation and reduction of the hip, wound closure and dressing.
--- NOTE | 2021-05-08 18:52 | XRAY Report ---
PROCEDURE: Hip w/Pelvis 2-3V LT INDICATIONS: Postop TECHNIQUE: AP pelvis with AP and lateral views of the left hip. COMPARISON: Left hip radiographs 05/07/2021 FINDINGS: Bones: Interval postsurgical changes are seen from left hip hemiarthroplasty with hardware component s in expected positions. Stable postsurgical changes are seen in the right hip with 3 metallic screws . Soft tissues: The visualized bowel gas pattern is normal. No suspicious soft tissue calcifications. Postoperative findings are seen in the soft tissues overlying the left hip. IMPRESSION: Status post left hip hemiarthroplasty with expected postoperative findings. Reviewed by: Allen England MD on 05/08/2021 6:51 PM PDT Approved by: Allen England MD on 05/08/2021 6:51 PM PDT Station ID: [id number]
[2021-05-08] MEDS ORDERED: NALOXONE 0.4 MG/ML VIAL IVP PRN (19:15)
[2021-05-08] MEDS ORDERED: MORPHINE 2 MG/ML CARPUJECT IVP PRN (19:15)
[2021-05-08] MEDS ORDERED: ATROPINE ABBOJECT 1 MG/10 ML SYRINGE IVP PRN (19:15)
[2021-05-08] MEDS ORDERED: fentaNYL 100 MCG/2 ML VIAL IVP PRN (19:15)
[2021-05-08] MEDS ORDERED: ePHEDrine 50 MG/ML VIAL IVP PRN (19:15)
[2021-05-08] MEDS ORDERED: HYDROmorphone 0.5 MG/0.5 ML SYRINGE IVP PRN (19:15)
--- NOTE | 2021-05-08 19:23 | ANESTHESIA POST OP EVALUATION ---
Anesthesia Post Eval - Post Anesthesia Eval Vitals: Last Vital Signs Temp 36.5 C 05/08/21 19:11 Pulse 99 05/08/21 19:11 Resp 12 05/08/21 19:11 BP 144/90 H 05/08/21 19:11 Pulse Ox 95 05/08/21 19:11 CV Function Including HR & BP: Stable Pain Control: Satisfactory Nausea & Vomiting: Negative Mental Status: Baseline Respiratory Status: Airway Patent Hydration Status: Satisfactory Anesthesia Complications: None
--- NOTE | 2021-05-08 19:37 | PROVIDER PROGRESS NOTE ---
Subjective - Prog Note Date Prog Note Date: 05/08/21 - Subjective Subjective: She reports feeling well today. Her pain is controlled but she did have a spinal for her intervention earlier today. She is able to move her toes. Current Medications - Current Medications Current Medications: Active Medications Acetaminophen (Acetaminophen 325 Mg Tablet) 650 - 975 mg PO Q4HR PRN PRN Reason: PAIN Enoxaparin Sodium (Enoxaparin 40 Mg/0.4 Ml Syringe) 40 mg SUBQ DAILY ANA Cefazolin Sodium/Dextrose (Ancef 2 Gm/50 Ml) 2 gm in 50 mls @ 100 mls/hr IV Q8HR ANA Stop: 05/09/21 06:29 Acetaminophen (Ofirmev) 100 mls @ 400 mls/hr IV Q6HR PRN PRN Reason: PAIN Sodium Chloride (Normal Saline 0.9%) 1,000 mls @ 100 mls/hr IV .Q10H ANA Morphine Sulfate (Morphine 2 Mg/Ml Carpuject) 2 mg IVP Q2HR PRN PRN Reason: Pain 8 to 10 Last Admin: 05/08/21 11:46 Dose: 2 mg Documented by: Ondansetron HCl (Ondansetron Odt 4 Mg Tablet) 4 mg TL Q6HR PRN PRN Reason: Nausea / Vomiting Ondansetron HCl (Ondansetron 4 Mg/2 Ml Vial) 4 mg IVP Q6HR PRN PRN Reason: Nausea / Vomiting Oxycodone HCl (Oxycodone 5 Mg Tablet) 5 mg PO Q4HR PRN PRN Reason: PAIN Prochlorperazine Edisylate (Prochlorperazine 10 Mg/2 Ml Vial) 10 mg IVP Q6HR PRN PRN Reason: Nausea / Vomiting Sodium Chloride (Sodium Chloride Flush 0.9% 10 Ml Syringe) 10 ml IVP 0100,0900,1700 ANA Sodium Chloride (Sodium Chloride Flush 0.9% 10 Ml Syringe) 10 ml IVP PRN PRN PRN Reason: NEEDED PER PROVIDER ORDERS No Known Home Medications 05/07/21 Objective - Vital Signs/Intake & Output Reviewed Vital Signs: Yes Vital Signs: Vital Signs x48h Temp Pulse Pulse Resp BP BP Pulse Ox 05/08/21 19:11 36.5 C 99 12 144/90 H 95 05/08/21 18:55 36.5 C 100 12 144/90 H 95 05/08/21 18:40 36.5 C 85 12 141/76 H 100 05/08/21 18:35 36.4 C L 82 12 128/80 99 05/08/21 18:30 36.4 C L 86 15 105/85 H 99 05/08/21 18:25 36.4 C L 87 16 132/80 H 99 05/08/21 18:20 37.1 C 88 18 129/81 H 98 05/08/21 18:16 37.1 C 87 14 129/75 98 05/08/21 13:45 89 16 142/67 H 99 05/08/21 12:49 80 12 126/73 98 05/08/21 12:45 82 14 144/76 H 96 Intake & Output: Intake & Output 05/05/21 05/06/21 05/07/21 05/08/21 23:59 23:59 23:59 23:59 Intake Total 790 Output Total 400 1550 Balance 390 -1550 - Objective General Appearance: positive: Alert ENT: positive: ENT inspection nml Neck: positive: Nml inspection Respiratory: positive: No respiratory distress. negative: Wheezes, Rales Cardiovascular: positive: Regular rate & rhythm, No murmur. negative: Tachycardia Skin: positive: Warm, Dry Extremities: positive: No pedal edema, Other (Dressing is in place over the lateral aspect of the left hip. Minimal edema. No erythema.) Neurologic/Psychiatric: positive: Other (She is able to move her toes.). negative: Disoriented to person, Disoriented to place - Lab Results Fish Bones: 05/08/21 04:55 05/08/21 04:55 Other Labs: Lab Results x24hrs 05/08/21 05/08/21 Range/Units 04:55 04:55 WBC 11.1 H (4.8-10.8) x10^3/uL RBC 4.24 (4.20-5.40) 10^6/uL Hgb 12.4 (12.0-16.0) g/dL Hct 36.8 L (37.0-47.0) % MCV 86.8 (81.0-99.0) fL MCH 29.2 (27.0-31.0) pg MCHC 33.7 (32.0-36.0) g/dL RDW 12.5 (12.0-15.0) % Plt Count 208 (130-450) 10^3/uL MPV 8.7 (7.9-10.8) fL Neut # (Auto) 9.4 H (1.5-6.6) 10^3/uL Lymph # (Auto) 0.9 L (1.5-3.5) 10^3/uL [place] # (Auto) 0.7 (0.0-1.0) 10^3/uL Eos # (Auto) 0.1 (0.0-0.7) 10^3/uL Baso # (Auto) 0.0 (0.0-0.1) 10^3/uL Absolute Nucleated RBC 0.00 x10^3/uL Nucleated RBC % 0.0 /100WBC Sodium 130 L (135-145) mmol/L Potassium 4.0 (3.5-5.0) mmol/L Chloride 99 L (101-111) mmol/L Carbon Dioxide 24 (21-32) mmol/L Anion Gap 7.0 (6-13) BUN 14 (6-20) mg/dL Creatinine 0.7 (0.4-1.0) mg/dL Estimated GFR (MDRD) 85 L (>89) Glucose 130 H (70-100) mg/dL Calcium 8.8 (8.5-10.3) mg/dL Assessment/Plan - Problem List (1) Closed left hip fracture Impression: She is now status post left hip hemiarthroplasty. We will continue pain control with morphine and oxycodone as needed as well as Toradol. Plan will be to work with physical therapy tomorrow. She is on Lovenox for DVT prophylaxis. She will need to be started on a bisphosphonate in 2 weeks. Appreciate orthopedic surgery input. Qualifiers: Encounter type: initial encounter Qualified Code(s): S72.002A - Fracture of unspecified part of neck of left femur, initial encounter for closed fracture (2) Effusion, left elbow Impression: Concern is for potential fracture given the effusion although this is not evident on imaging. Will consider repeating an x-ray in 1 to 2 days. We can also consider a CT. We will discussed this with orthopedic surgery to see what they recommend. (3) Fall due to stumbling Impression: This fall was mechanical in nature. There is no concern for syncope. Qualifiers: Encounter type: initial encounter Qualified Code(s): W01.0XXA - Fall on same level from slipping, tripping and stumbling without subsequent striking against object, initial encounter
[2021-05-08] MEDS ORDERED: LACTATED RINGERS 1,000 ML IV SCH (20:00)
[2021-05-08] MEDS: SODIUM CHLORIDE 0.9% 1,000 ML IV SCH (20:03)
[2021-05-08] MEDS: ENOXAPARIN 40 MG/0.4 ML SYRINGE SUBQ SCH (20:09)
[2021-05-08] MEDS: ceFAZolin 2 GM/50 ML 2 GM/50 ML BAG IV SCH (21:28)
[2021-05-09] MEDS: SODIUM CHLORIDE FLUSH 0.9% 10 ML SYRINGE IVP SCH ×3 (01:45→16:42)
[2021-05-09 05:17] LABS: BASOPHILS % (AUTO) 0.2 %; HCT - HEMATOCRIT 35.3 % (37.0-47.0); HGB - HEMOGLOBIN 11.5 g/dL (12.0-16.0); LYMPHOCYTES # (AUTO) 0.8 10^3/uL (1.5-3.5); LYMPHOCYTES % (AUTO) 6.9 %; MEAN CORPUSCULAR HEMOGLOBIN 28.9 pg (27.0-31.0); MEAN CORPUSCULAR HGB CONC 32.6 g/dL (32.0-36.0); MEAN CORPUSCULAR VOLUME 88.7 fL (81.0-99.0); MEAN PLATELET VOLUME 9.2 fL (7.9-10.8); MONOCYTES # (AUTO) 0.7 10^3/uL (0.0-1.0); NEUTROPHILS # (AUTO) 10.5 10^3/uL (1.5-6.6); NEUTROPHILS % (AUTO) 86.5 %; PLT - PLATELET COUNT 162 10^3/uL (130-450); RED BLOOD COUNT 3.98 10^6/uL (4.20-5.40); RED CELL DISTRIBUTION WIDTH 12.7 % (12.0-15.0); WHITE BLOOD COUNT 12.2 x10^3/uL (4.8-10.8)
[2021-05-09 05:23] LABS: CREATININE 0.7 mg/dL (0.4-1.0)
[2021-05-09 05:40] LABS: CALCIUM 8.4 mg/dL (8.5-10.3); POTASSIUM 4.1 mmol/L (3.5-5.0)
[2021-05-09] MEDS: oxyCODONE 5 MG TABLET PO PRN ×2 (06:01→10:45)
[2021-05-09] MEDS: ACETAMINOPHEN 325 MG TABLET PO PRN (06:01)
[2021-05-09] MEDS: SODIUM CHLORIDE 0.9% 1,000 ML IV SCH ×3 (06:01→16:48)
[2021-05-09] MEDS: ceFAZolin 2 GM/50 ML 2 GM/50 ML BAG IV SCH (06:01)
--- NOTE | 2021-05-09 06:42 | PHARMACY PROGRESS NOTE ---
- Best Possible Medication History Admit Date and Time: 05/07/21 1626 Processed by: Nursing Medication History completed: Yes Patient Interview: Completed As the person ultimately responsible for medication therapy, providers are able to order a medication from an existing home medication list in [facility] via the "Reconcile Routine" prior to Confirmation of that medication by user support analyst supervisor. Such practice is discouraged except when the physician, in their clinical judg ment, deems that a medical need exists for a medication without regard to previous use.
--- NOTE | 2021-05-09 08:24 | PROVIDER PROGRESS NOTE ---
Subjective - General Admit Date: 05/07/21 Procedure Date: 05/08/21 Post Op Days: 1 Procedure Performed: Left hip hemiarthroplasty - Review of Systems Wound/Incisions: positive: Dressing dry and intact General: positive: No symptoms. negative: Other (Pain is much improved since surgery yesterday to left hip) Pulmonary: positive: No symptoms Cardiovascular: positive: No symptoms Gastrointestinal: positive: No symptoms All Other Systems: positive: Reviewed and negative Objective - Patient Data Vital Signs: Vital Signs x48h Temp Pulse Resp BP Pulse Ox 05/09/21 08:00 102 H 18 137/91 H 96 05/09/21 05:00 36.8 C 84 18 127/62 96 Weight: Weight 05/07/21 05/08/21 05/09/21 23:59 23:59 23:59 Weight (kg) 101.5 kg 101.5 kg Intake & Output: Intake and Output Totals x24h 05/07/21 05/08/21 05/09/21 23:59 23:59 23:59 Intake Total 507 988 6415.667 Output Total 400 1550 700 Balance 390 -850 346.667 - Lab Results Lab Results: 05/09/21 04:55 05/09/21 04:55 Other Lab Results: Lab Results x24hrs 05/09/21 05/09/21 Range/Units 04:55 04:55 WBC 12.2 H (4.8-10.8) x10^3/uL RBC 3.98 L (4.20-5.40) 10^6/uL Hgb 11.5 L (12.0-16.0) g/dL Hct 35.3 L (37.0-47.0) % MCV 88.7 (81.0-99.0) fL MCH 28.9 (27.0-31.0) pg MCHC 32.6 (32.0-36.0) g/dL RDW 12.7 (12.0-15.0) % Plt Count 162 (130-450) 10^3/uL MPV 9.2 (7.9-10.8) fL Neut # (Auto) 10.5 H (1.5-6.6) 10^3/uL Lymph # (Auto) 0.8 L (1.5-3.5) 10^3/uL [place] # (Auto) 0.7 (0.0-1.0) 10^3/uL Eos # (Auto) 0.0 (0.0-0.7) 10^3/uL Baso # (Auto) 0.0 (0.0-0.1) 10^3/uL Absolute Nucleated RBC 0.00 x10^3/uL Nucleated RBC % 0.0 /100WBC Sodium 137 (135-145) mmol/L Potassium 4.1 (3.5-5.0) mmol/L Chloride 108 (101-111) mmol/L Carbon Dioxide 23 (21-32) mmol/L Anion Gap 6.0 (6-13) BUN 14 (6-20) mg/dL Creatinine 0.7 (0.4-1.0) mg/dL Estimated GFR (MDRD) 85 L (>89) Glucose 127 H (70-100) mg/dL Calcium 8.4 L (8.5-10.3) mg/dL - Current Medications Current Medications: Current Medications Generic Name Dose Route Start Last Admin Trade Name Freq PRN Reason Stop Dose Admin Acetaminophen 650 - 975 mg 05/08/21 14:26 05/09/21 06:01 Acetaminophen 325 Mg Tablet PO 650 mg Q4HR PRN Administration PAIN Enoxaparin Sodium 40 mg 05/08/21 18:54 05/08/21 20:09 Enoxaparin 40 Mg/0.4 Ml Syringe SUBQ 40 mg DAILY ANA Administration Sodium Chloride 1,000 mls @ 100 mls/hr 05/08/21 15:00 05/09/21 06:01 Normal Saline 0.9% IV 100 mls/hr .Q10H ANA Administration Morphine Sulfate 2 mg 05/07/21 16:26 05/08/21 11:46 Morphine 2 Mg/Ml Carpuject IVP 2 mg Q2HR PRN Administration Pain 8 to 10 Oxycodone HCl 5 mg 05/08/21 14:26 05/09/21 06:01 Oxycodone 5 Mg Tablet PO 5 mg Q4HR PRN Administration PAIN Sodium Chloride 10 ml 05/08/21 17:00 05/09/21 01:45 Sodium Chloride Flush 0.9% 10 Ml Syringe IVP Not Given 0100,0900,1700 [facility] - Physical Exam Wound/Incisions: positive: Dressing dry and intact General Appearance: positive: No acute distress Neurologic/Psychiatric: positive: Oriented x3, Motor nml, Sensation nml Comments/Other: Dressing is dry and intact left hip, no sign of hematoma, neurovascular intact left leg, no clinical deformity, sitting comfortably Impression/Plan - Problem List Problem List: Status post left hip hemiarthroplasty Begin physical and occupational therapy, walker, weightbearing as tolerated, tentative discharge planning to home. Will need follow-up with orthopedics and primary care; osteoporosis needs to be addressed
[2021-05-09] MEDS: ENOXAPARIN 40 MG/0.4 ML SYRINGE SUBQ SCH (08:51)
[2021-05-09] MEDS ORDERED: ASPIRIN EC 325 MG TABLET PO SCH (09:00)
[2021-05-09] MEDS: KETOROLAC 30 MG/ML VIAL IVP PRN ×2 (10:44→17:47)
--- NOTE | 2021-05-09 12:52 | PROVIDER PROGRESS NOTE ---
Assessment/Plan - Problem List (1) Closed left hip fracture Qualifiers: Encounter type: initial encounter Qualified Code(s): S72.002A - Fracture of unspecified part of neck of left femur, initial encounter for closed fracture Assessment/Plan: Pain management as needed with toradol, morphine and oxycodone Patient is to work with physical therapy today. We will await their recommendations. Patient will need to start bisphosphonate in 2 weeks. Follow-up outpatient with orthopedic. Anticipated discharge tomorrow 05/10/2021 (2) Effusion, left elbow Assessment/Plan: No fracture was evident on imaging. Orthopedic recommended repeat x-ray in the outpatient setting in 10 days. (3) Fall due to stumbling Qualifiers: Encounter type: initial encounter Qualified Code(s): W01.0XXA - Fall on same level from slipping, tripping and stumbling without subsequent striking against object, initial encounter Assessment/Plan: This was a mechanical fall. There is no concern for syncope - Current Meds Current Meds: Current Medications Generic Name Dose Route Start Last Admin Trade Name Freq PRN Reason Stop Dose Admin Acetaminophen 650 - 975 mg 05/08/21 14:26 05/09/21 06:01 Acetaminophen 325 Mg Tablet PO 650 mg Q4HR PRN Administration PAIN Enoxaparin Sodium 40 mg 05/08/21 18:54 05/09/21 08:51 Enoxaparin 40 Mg/0.4 Ml Syringe SUBQ 40 mg DAILY ANA Administration Sodium Chloride 1,000 mls @ 100 mls/hr 05/08/21 15:00 05/09/21 06:01 Normal Saline 0.9% IV 100 mls/hr .Q10H ANA Administration Ketorolac Tromethamine 30 mg 05/08/21 19:47 05/09/21 10:44 Ketorolac 30 Mg/Ml Vial IVP 05/13/21 19:46 30 mg Q6HR PRN Administration PAIN Morphine Sulfate 2 mg 05/07/21 16:26 05/08/21 11:46 Morphine 2 Mg/Ml Carpuject IVP 2 mg Q2HR PRN Administration Pain 8 to 10 Oxycodone HCl 5 mg 05/08/21 14:26 05/09/21 10:45 Oxycodone 5 Mg Tablet PO 5 mg Q4HR PRN Administration PAIN Sodium Chloride 10 ml 05/08/21 17:00 05/09/21 10:44 Sodium Chloride Flush 0.9% 10 Ml Syringe IVP 10 ml 0100,0900,1700 ANA Administration - Lab Result Fish Bone Diagrams: 05/09/21 04:55 05/09/21 04:55 Subjective - Subjective Patient Reports: Other (Patient was resting comfortably in bed. She denied any pain at the time of exam. She denied chest pain, dyspnea, abdominal pain, nausea, vomiting, fever or chills. She is yet to work with physical therapy today.) Objective Vital Signs: Vital Signs - 24 hr 05/08/21 05/08/21 05/08/21 13:45 18:16 18:20 Temperature 37.1 C 37.1 C Heart Rate 87 88 Heart Rate [ Brachial] Heart Rate [ 89 Radial] Respiratory 16 14 18 Rate Blood Pressure 129/75 129/81 H Blood Pressure 142/67 H [Left Brachial artery] O2 Saturation 99 98 98 05/08/21 05/08/21 05/08/21 18:25 18:30 18:35 Temperature 36.4 C L 36.4 C L 36.4 C L Heart Rate 87 86 82 Heart Rate [ Brachial] Heart Rate [ Radial] Respiratory 16 15 12 Rate Blood Pressure 132/80 H 105/85 H 128/80 Blood Pressure [Left Brachial artery] O2 Saturation 99 99 99 05/08/21 05/08/21 05/08/21 18:40 18:55 19:11 Temperature 36.5 C 36.5 C 36.5 C Heart Rate 85 100 99 Heart Rate [ Brachial] Heart Rate [ Radial] Respiratory 12 12 12 Rate Blood Pressure 141/76 H 144/90 H 144/90 H Blood Pressure [Left Brachial artery] O2 Saturation 100 95 95 05/08/21 05/08/21 05/08/21 19:30 19:45 20:00 Temperature 36.6 C Heart Rate Heart Rate [ Brachial] Heart Rate [ 91 85 93 Radial] Respiratory 18 18 Rate Blood Pressure Blood Pressure 138/75 H 143/72 H 145/80 H [Left Brachial artery] O2 Saturation 93 95 05/08/21 05/08/21 05/08/21 20:15 20:45 21:45 Temperature Heart Rate Heart Rate [ Brachial] Heart Rate [ 86 92 92 Radial] Respiratory Rate Blood Pressure Blood Pressure 140/70 H 135/65 H 131/84 H [Left Brachial artery] O2 Saturation 05/08/21 05/09/21 05/09/21 22:28 00:00 05:00 Temperature 36.8 C 36.8 C Heart Rate Heart Rate [ 85 84 Brachial] Heart Rate [ 86 Radial] Respiratory 18 18 18 Rate Blood Pressure Blood Pressure 137/74 H 120/64 127/62 [Left Brachial artery] O2 Saturation 95 94 96 05/09/21 08:00 Temperature Heart Rate Heart Rate [ 102 H Brachial] Heart Rate [ Radial] Respiratory 18 Rate Blood Pressure Blood Pressure 137/91 H [Left Brachial artery] O2 Saturation 96 Oxygen O2 Source Nasal cannula Oxygen Flow Rate 2 I&O (Last 24 Hrs): Intake and Output Totals x24h 05/07/21 05/08/21 05/09/21 23:59 23:59 23:59 Intake Total 998 560 8081.667 Output Total 400 1550 700 Balance 390 -850 586.667 General: Alert, Oriented x3, No acute distress HEENT: PERRLA, EOMI Neck: Supple, No JVD Neuro: Alert, Non Focal, Oriented Times 3 Cardiovascular: Regular rate, Normal S1, Normal S2 Respiratory: Chest non-tender, No respiratory distress, Breath sounds nml Abdomen: Normal bowel sounds, Soft, No tenderness Extremities: No clubbing, No edema, No tenderness/swelling Skin: No rashes, No breakdown - Results Results: Laboratory Results WBC 12.2 x10^3/uL (4.8-10.8) H 05/09/21 04:55 RBC 3.98 10^6/uL (4.20-5.40) L 05/09/21 04:55 Hgb 11.5 g/dL (12.0-16.0) L 05/09/21 04:55 Hct 35.3 % (37.0-47.0) L 05/09/21 04:55 MCV 88.7 fL (81.0-99.0) 05/09/21 04:55 MCH 28.9 pg (27.0-31.0) 05/09/21 04:55 MCHC 32.6 g/dL (32.0-36.0) 05/09/21 04:55 RDW 12.7 % (12.0-15.0) 05/09/21 04:55 Plt Count 162 10^3/uL (130-450) 05/09/21 04:55 MPV 9.2 fL (7.9-10.8) 05/09/21 04:55 Neut # (Auto) 10.5 10^3/uL (1.5-6.6) H 05/09/21 04:55 Lymph # (Auto) 0.8 10^3/uL (1.5-3.5) L 05/09/21 04:55 [place] # (Auto) 0.7 10^3/uL (0.0-1.0) 05/09/21 04:55 Eos # (Auto) 0.0 10^3/uL (0.0-0.7) 05/09/21 04:55 Baso # (Auto) 0.0 10^3/uL (0.0-0.1) 05/09/21 04:55 Absolute Nucleated RBC 0.00 x10^3/uL 05/09/21 04:55 Nucleated RBC % 0.0 /100WBC 05/09/21 04:55 PT 12.8 secs (9.9-12.6) H 05/07/21 15:55 INR 1.2 (0.8-1.2) 05/07/21 15:55 Sodium 137 mmol/L (135-145) 05/09/21 04:55 Potassium 4.1 mmol/L (3.5-5.0) 05/09/21 04:55 Chloride 108 mmol/L (101-111) 05/09/21 04:55 Carbon Dioxide 23 mmol/L (21-32) 05/09/21 04:55 Anion Gap 6.0 (6-13) 05/09/21 04:55 BUN 14 mg/dL (6-20) 05/09/21 04:55 Creatinine 0.7 mg/dL (0.4-1.0) 05/09/21 04:55 Estimated GFR (MDRD) 85 (>89) L 05/09/21 04:55 Glucose 127 mg/dL (70-100) H 05/09/21 04:55 Calcium 8.4 mg/dL (8.5-10.3) L 05/09/21 04:55 Magnesium 2.2 mg/dL (1.7-2.8) 05/07/21 15:02 Total Bilirubin 0.7 mg/dL (0.2-1.0) 05/07/21 15:02 AST 25 IU/L (10-42) 05/07/21 15:02 ALT 27 IU/L (10-60) 05/07/21 15:02 Alkaline Phosphatase 75 IU/L (42-121) 05/07/21 15:02 Total Protein 7.0 g/dL (6.7-8.2) 05/07/21 15:02 Albumin 4.1 g/dL (3.2-5.5) 05/07/21 15:02 Globulin 2.9 g/dL (2.1-4.2) 05/07/21 15:02 Albumin/Globulin Ratio 1.4 (1.0-2.2) 05/07/21 15:02 Nasal Adenovirus (PCR) NOT DETECTED 05/07/21 15:07 Nasal B. parapertussis DNA (PCR) NOT DETECTED 05/07/21 15:07 Nasal Coronavir 229E PCR NOT DETECTED 05/07/21 15:07 Nasal Coronavir HKU1 PCR NOT DETECTED 05/07/21 15:07 Nasal Coronavir NL63 PCR NOT DETECTED 05/07/21 15:07 Nasal Coronavir OC43 PCR NOT DETECTED 05/07/21 15:07 Nasal Enterovir/Rhinovir PCR NOT DETECTED 05/07/21 15:07 Nasal Influenza B PCR NOT DETECTED 05/07/21 15:07 Nasal Influenza A PCR NOT DETECTED 05/07/21 15:07 Nasal Parainfluen 1 PCR NOT DETECTED 05/07/21 15:07 Nasal Parainfluen 2 PCR NOT DETECTED 05/07/21 15:07 Nasal Parainfluen 3 PCR NOT DETECTED 05/07/21 15:07 Nasal Parainfluen 4 PCR NOT DETECTED 05/07/21 15:07 Nasal RSV (PCR) NOT DETECTED 05/07/21 15:07 Nasal B.pertussis DNA PCR NOT DETECTED 05/07/21 15:07 Nasal C.pneumoniae (PCR) NOT DETECTED 05/07/21 15:07 [place] Human Metapneumo PCR NOT DETECTED 05/07/21 15:07 Nasal M.pneumoniae (PCR) NOT DETECTED 05/07/21 15:07 Nasal SARS-CoV-2 (PCR) NOT DETECTED 05/07/21 15:07 Blood Type A POSITIVE 05/07/21 15:02 Antibody Screen NEGATIVE 05/07/21 15:02 ABX Reporting Has patient been on IV antibiotics over the past 48 hours?: No
[2021-05-10] MEDS: SODIUM CHLORIDE FLUSH 0.9% 10 ML SYRINGE IVP SCH ×4 (00:57→23:27)
[2021-05-10] MEDS: oxyCODONE 5 MG TABLET PO PRN (00:57)
[2021-05-10] MEDS: KETOROLAC 30 MG/ML VIAL IVP PRN ×3 (00:57→17:51)
[2021-05-10] MEDS: SODIUM CHLORIDE 0.9% 1,000 ML IV SCH ×3 (03:10→23:03)
[2021-05-10 05:02] LABS: BASOPHILS # (AUTO) 0.1 10^3/uL (0.0-0.1); BASOPHILS % (AUTO) 0.6 %; EOSINOPHILS # (AUTO) 0.5 10^3/uL (0.0-0.7); EOSINOPHILS % (AUTO) 5.3 %; HCT - HEMATOCRIT 29.5 % (37.0-47.0); HGB - HEMOGLOBIN 9.7 g/dL (12.0-16.0); LYMPHOCYTES % (AUTO) 20.8 %; MEAN CORPUSCULAR HEMOGLOBIN 29.2 pg (27.0-31.0); MEAN CORPUSCULAR HGB CONC 32.9 g/dL (32.0-36.0); MEAN CORPUSCULAR VOLUME 88.9 fL (81.0-99.0); MEAN PLATELET VOLUME 9.2 fL (7.9-10.8); MONOCYTES # (AUTO) 0.6 10^3/uL (0.0-1.0); NEUTROPHILS # (AUTO) 6.4 10^3/uL (1.5-6.6); NEUTROPHILS % (AUTO) 66.7 %; PLT - PLATELET COUNT 135 10^3/uL (130-450); RED BLOOD COUNT 3.32 10^6/uL (4.20-5.40); RED CELL DISTRIBUTION WIDTH 13.2 % (12.0-15.0); WHITE BLOOD COUNT 9.7 x10^3/uL (4.8-10.8)
[2021-05-10 05:09] LABS: CALCIUM 7.8 mg/dL (8.5-10.3); CREATININE 0.7 mg/dL (0.4-1.0); POTASSIUM 3.6 mmol/L (3.5-5.0)
[2021-05-10] MEDS: SENNA 8.6 MG TABLET PO SCH (08:06)
[2021-05-10] MEDS: ENOXAPARIN 40 MG/0.4 ML SYRINGE SUBQ SCH (08:06)
--- NOTE | 2021-05-10 13:39 | PROVIDER PROGRESS NOTE ---
Assessment/Plan - Problem List (1) Closed left hip fracture Qualifiers: Encounter type: initial encounter Qualified Code(s): S72.002A - Fracture of unspecified part of neck of left femur, initial encounter for closed fracture Assessment/Plan: Pain management as needed with toradol, morphine and oxycodone Patient was seen by physical therapy today. snf facility was recommended for rehab. Social work and discharge coordinators helping to facilitate placement Patient will need to start bisphosphonate in 2 weeks. DVT prophylaxis with Lovenox daily. Follow-up outpatient with orthopedic. (2) Effusion, left elbow Assessment/Plan: No fracture was evident on imaging. Orthopedic recommended repeat x-ray in the outpatient setting in 10 days. (3) Fall due to stumbling Qualifiers: Encounter type: initial encounter Qualified Code(s): W01.0XXA - Fall on same level from slipping, tripping and stumbling without subsequent striking against object, initial encounter Assessment/Plan: This was a mechanical fall. There is no concern for syncope - Current Meds Current Meds: Current Medications Generic Name Dose Route Start Last Admin Trade Name Freq PRN Reason Stop Dose Admin Acetaminophen 650 - 975 mg 05/08/21 14:26 05/09/21 06:01 Acetaminophen 325 Mg Tablet PO 650 mg Q4HR PRN Administration PAIN Enoxaparin Sodium 40 mg 05/08/21 18:54 05/10/21 08:06 Enoxaparin 40 Mg/0.4 Ml Syringe SUBQ 40 mg DAILY ANA Administration Sodium Chloride 1,000 mls @ 100 mls/hr 05/08/21 15:00 05/10/21 13:19 Normal Saline 0.9% IV 100 mls/hr .Q10H ANA Administration Ketorolac Tromethamine 30 mg 05/08/21 19:47 05/10/21 11:18 Ketorolac 30 Mg/Ml Vial IVP 05/13/21 19:46 30 mg Q6HR PRN Administration PAIN Morphine Sulfate 2 mg 05/07/21 16:26 05/08/21 11:46 Morphine 2 Mg/Ml Carpuject IVP 2 mg Q2HR PRN Administration Pain 8 to 10 Oxycodone HCl 5 mg 05/08/21 14:26 05/10/21 00:57 Oxycodone 5 Mg Tablet PO 5 mg Q4HR PRN Administration PAIN Senna 8.6 - 17.2 mg 05/10/21 09:00 05/10/21 08:06 Senna 8.6 Mg Tablet PO 8.6 mg DAILY ANA Administration Sodium Chloride 10 ml 05/08/21 17:00 05/10/21 08:06 Sodium Chloride Flush 0.9% 10 Ml Syringe IVP 10 ml 0100,0900,1700 ANA Administration - Lab Result Fish Bone Diagrams: 05/11/21 05:13 05/11/21 05:13 Subjective - Subjective Patient Reports: Other (Patient was resting comfortably in bed. She was able to ambulate today with physical therapy inside the room. She denied abdominal pain, nausea, vomiting, fever or chills. Complained of mild swelling just lateral to the mandible bilaterally) Objective Vital Signs: Vital Signs - 24 hr 05/09/21 05/10/21 05/10/21 16:00 00:00 00:53 Temperature 37.1 C 36.7 C Heart Rate Heart Rate [ 112 H 102 H Brachial] Respiratory 20 18 Rate Blood Pressure 126/61 [Left Brachial artery] Blood Pressure 121/57 L [Right Brachial artery] O2 Saturation 92 90 L 93 05/10/21 05/10/21 08:00 09:50 Temperature 37.0 C 37 C Heart Rate 104 H Heart Rate [ 104 H Brachial] Respiratory 18 18 Rate Blood Pressure [Left Brachial artery] Blood Pressure 139/71 H [Right Brachial artery] O2 Saturation 93 93 Oxygen O2 Source Room air Oxygen Flow Rate 2 I&O (Last 24 Hrs): Intake and Output Totals x24h 05/08/21 05/09/21 05/10/21 23:59 23:59 23:59 Intake Total 700 3626.667 2230 Output Total 1550 875 Balance -850 2751.667 2230 General: Alert, Oriented x3, Mild distress, Moderate distress HEENT: PERRLA, EOMI Neck: Supple, No JVD Neuro: Alert, Non Focal, Oriented Times 3 Cardiovascular: Regular rate, Normal S1, Normal S2 Respiratory: Chest non-tender, No respiratory distress, Breath sounds nml Abdomen: Normal bowel sounds, Soft, No tenderness Extremities: No clubbing, No cyanosis, No edema Skin: No rashes, No breakdown - Results Results: Laboratory Results WBC 9.7 x10^3/uL (4.8-10.8) 05/10/21 04:35 RBC 3.32 10^6/uL (4.20-5.40) L 05/10/21 04:35 Hgb 9.7 g/dL (12.0-16.0) L 05/10/21 04:35 Hct 29.5 % (37.0-47.0) L 05/10/21 04:35 MCV 88.9 fL (81.0-99.0) 05/10/21 04:35 MCH 29.2 pg (27.0-31.0) 05/10/21 04:35 MCHC 32.9 g/dL (32.0-36.0) 05/10/21 04:35 RDW 13.2 % (12.0-15.0) 05/10/21 04:35 Plt Count 135 10^3/uL (130-450) 05/10/21 04:35 MPV 9.2 fL (7.9-10.8) 05/10/21 04:35 Neut # (Auto) 6.4 10^3/uL (1.5-6.6) 05/10/21 04:35 Lymph # (Auto) 2.0 10^3/uL (1.5-3.5) 05/10/21 04:35 [place] # (Auto) 0.6 10^3/uL (0.0-1.0) 05/10/21 04:35 Eos # (Auto) 0.5 10^3/uL (0.0-0.7) 05/10/21 04:35 Baso # (Auto) 0.1 10^3/uL (0.0-0.1) 05/10/21 04:35 Absolute Nucleated RBC 0.00 x10^3/uL 05/10/21 04:35 Nucleated RBC % 0.0 /100WBC 05/10/21 04:35 PT 12.8 secs (9.9-12.6) H 05/07/21 15:55 INR 1.2 (0.8-1.2) 05/07/21 15:55 Sodium 134 mmol/L (135-145) L 05/10/21 04:35 Potassium 3.6 mmol/L (3.5-5.0) 05/10/21 04:35 Chloride 107 mmol/L (101-111) 05/10/21 04:35 Carbon Dioxide 21 mmol/L (21-32) 05/10/21 04:35 Anion Gap 6.0 (6-13) 05/10/21 04:35 BUN 16 mg/dL (6-20) 05/10/21 04:35 Creatinine 0.7 mg/dL (0.4-1.0) 05/10/21 04:35 Estimated GFR (MDRD) 85 (>89) L 05/10/21 04:35 Glucose 104 mg/dL (70-100) H 05/10/21 04:35 Calcium 7.8 mg/dL (8.5-10.3) L 05/10/21 04:35 Magnesium 2.2 mg/dL (1.7-2.8) 05/07/21 15:02 Total Bilirubin 0.7 mg/dL (0.2-1.0) 05/07/21 15:02 AST 25 IU/L (10-42) 05/07/21 15:02 ALT 27 IU/L (10-60) 05/07/21 15:02 Alkaline Phosphatase 75 IU/L (42-121) 05/07/21 15:02 Total Protein 7.0 g/dL (6.7-8.2) 05/07/21 15:02 Albumin 4.1 g/dL (3.2-5.5) 05/07/21 15:02 Globulin 2.9 g/dL (2.1-4.2) 05/07/21 15:02 Albumin/Globulin Ratio 1.4 (1.0-2.2) 05/07/21 15:02 Nasal Adenovirus (PCR) NOT DETECTED 05/07/21 15:07 Nasal B. parapertussis DNA (PCR) NOT DETECTED 05/07/21 15:07 Nasal Coronavir 229E PCR NOT DETECTED 05/07/21 15:07 Nasal Coronavir HKU1 PCR NOT DETECTED 05/07/21 15:07 Nasal Coronavir NL63 PCR NOT DETECTED 05/07/21 15:07 Nasal Coronavir OC43 PCR NOT DETECTED 05/07/21 15:07 Nasal Enterovir/Rhinovir PCR NOT DETECTED 05/07/21 15:07 Nasal Influenza B PCR NOT DETECTED 05/07/21 15:07 Nasal Influenza A PCR NOT DETECTED 05/07/21 15:07 Nasal Parainfluen 1 PCR NOT DETECTED 05/07/21 15:07 Nasal Parainfluen 2 PCR NOT DETECTED 05/07/21 15:07 Nasal Parainfluen 3 PCR NOT DETECTED 05/07/21 15:07 Nasal Parainfluen 4 PCR NOT DETECTED 05/07/21 15:07 Nasal RSV (PCR) NOT DETECTED 05/07/21 15:07 Nasal B.pertussis DNA PCR NOT DETECTED 05/07/21 15:07 Nasal C.pneumoniae (PCR) NOT DETECTED 05/07/21 15:07 [place] Human Metapneumo PCR NOT DETECTED 05/07/21 15:07 Nasal M.pneumoniae (PCR) NOT DETECTED 05/07/21 15:07 Nasal SARS-CoV-2 (PCR) NOT DETECTED 05/07/21 15:07 Blood Type A POSITIVE 05/07/21 15:02 Antibody Screen NEGATIVE 05/07/21 15:02 ABX Reporting Has patient been on IV antibiotics over the past 48 hours?: No
[2021-05-11] MEDS: KETOROLAC 30 MG/ML VIAL IVP PRN ×4 (00:16→19:37)
[2021-05-11 05:45] LABS: CALCIUM 7.9 mg/dL (8.5-10.3); CREATININE 0.7 mg/dL (0.4-1.0); POTASSIUM 3.4 mmol/L (3.5-5.0)
[2021-05-11 05:46] LABS: BASOPHILS % (AUTO) 0.5 %; EOSINOPHILS # (AUTO) 0.5 10^3/uL (0.0-0.7); EOSINOPHILS % (AUTO) 5.6 %; HCT - HEMATOCRIT 27.8 % (37.0-47.0); HGB - HEMOGLOBIN 9.2 g/dL (12.0-16.0); LYMPHOCYTES # (AUTO) 1.7 10^3/uL (1.5-3.5); LYMPHOCYTES % (AUTO) 21.1 %; MEAN CORPUSCULAR HEMOGLOBIN 29.4 pg (27.0-31.0); MEAN CORPUSCULAR HGB CONC 33.1 g/dL (32.0-36.0); MEAN CORPUSCULAR VOLUME 88.8 fL (81.0-99.0); MEAN PLATELET VOLUME 9.4 fL (7.9-10.8); MONOCYTES # (AUTO) 0.7 10^3/uL (0.0-1.0); MONOCYTES % (AUTO) 8.1 %; NEUTROPHILS # (AUTO) 5.2 10^3/uL (1.5-6.6); PLT - PLATELET COUNT 158 10^3/uL (130-450); RED BLOOD COUNT 3.13 10^6/uL (4.20-5.40); WHITE BLOOD COUNT 8.2 x10^3/uL (4.8-10.8)
[2021-05-11] MEDS ORDERED: POTASSIUM CHLORIDE 20 MEQ TABLET PO ONE (08:00)
[2021-05-11] MEDS: SODIUM CHLORIDE 0.9% 1,000 ML IV SCH (08:14)
[2021-05-11] MEDS: SENNA 8.6 MG TABLET PO SCH (08:52)
[2021-05-11] MEDS: ENOXAPARIN 40 MG/0.4 ML SYRINGE SUBQ SCH (08:53)
[2021-05-11] MEDS: polyethylene glycoL 3350 17 GM PACKET PO SCH (08:53)
[2021-05-11] MEDS: SODIUM CHLORIDE FLUSH 0.9% 10 ML SYRINGE IVP SCH ×2 (08:57→16:00)
[2021-05-11] MEDS: oxyCODONE 5 MG TABLET PO PRN ×3 (11:25→20:50)
[2021-05-11] MEDS: ACETAMINOPHEN 325 MG TABLET PO PRN ×3 (11:25→20:50)
--- NOTE | 2021-05-11 11:30 | PROVIDER PROGRESS NOTE ---
Assessment/Plan - Problem List (1) Closed left hip fracture Qualifiers: Encounter type: initial encounter Qualified Code(s): S72.002A - Fracture of unspecified part of neck of left femur, initial encounter for closed fracture Assessment/Plan: Continue pain management as needed with toradol, morphine and oxycodone Patient will working with physical therapy while in the hospital. Social work and discharge coordinators helping to facilitate placement Patient will need to start bisphosphonate in 2 weeks. DVT prophylaxis with Lovenox daily. Follow-up outpatient with orthopedic. (2) Effusion, left elbow Assessment/Plan: No fracture was evident on imaging. Orthopedic recommended repeat x-ray in the outpatient setting in 7 days. (3) Fall due to stumbling Qualifiers: Encounter type: initial encounter Qualified Code(s): W01.0XXA - Fall on same level from slipping, tripping and stumbling without subsequent striking against object, initial encounter Assessment/Plan: This was a mechanical fall. There is no concern for syncope - Current Meds Current Meds: Current Medications Generic Name Dose Route Start Last Admin Trade Name Freq PRN Reason Stop Dose Admin Acetaminophen 650 - 975 mg 05/08/21 14:26 05/11/21 11:25 Acetaminophen 325 Mg Tablet PO 650 mg Q4HR PRN Administration PAIN Enoxaparin Sodium 40 mg 05/08/21 18:54 05/11/21 08:53 Enoxaparin 40 Mg/0.4 Ml Syringe SUBQ 40 mg DAILY ANA Administration Ketorolac Tromethamine 30 mg 05/08/21 19:47 05/11/21 06:33 Ketorolac 30 Mg/Ml Vial IVP 05/13/21 19:46 30 mg Q6HR PRN Administration PAIN Morphine Sulfate 2 mg 05/07/21 16:26 05/08/21 11:46 Morphine 2 Mg/Ml Carpuject IVP 2 mg Q2HR PRN Administration Pain 8 to 10 Oxycodone HCl 5 mg 05/08/21 14:26 05/11/21 11:25 Oxycodone 5 Mg Tablet PO 5 mg Q4HR PRN Administration PAIN Polyethylene Glycol 17 gm 05/11/21 09:00 05/11/21 08:53 Polyethylene Glycol 3350 17 Gm Packet PO 17 gm DAILY ANA Administration Senna 8.6 - 17.2 mg 05/10/21 09:00 05/11/21 08:52 Senna 8.6 Mg Tablet PO 17.2 mg DAILY ANA Administration Sodium Chloride 10 ml 05/08/21 17:00 05/11/21 08:57 Sodium Chloride Flush 0.9% 10 Ml Syringe IVP Not Given 0100,0900,1700 ANA - Lab Result Fish Bone Diagrams: 05/11/21 05:13 05/11/21 05:13 - Additional Planning My Orders: My Active Orders 05/11/21 14:00 CBC W/O DIFF (HEMOGRAM) [HEME] Timed Subjective - Subjective Patient Reports: Other (Patient was seated in bedside chair at time of exam.She reported minimal pain today. She denied any other complaints.) Objective Vital Signs: Vital Signs - 24 hr 05/10/21 05/10/21 05/11/21 16:00 23:30 08:00 Temperature 37.1 C 36.7 C Heart Rate [ 94 101 H 104 H Brachial] Respiratory 18 16 18 Rate Blood Pressure 127/72 147/71 H 142/82 H [Right Brachial artery] O2 Saturation 95 93 94 Oxygen O2 Source Room air Oxygen Flow Rate 2 I&O (Last 24 Hrs): Intake and Output Totals x24h 05/09/21 05/10/21 05/11/21 23:59 23:59 23:59 Intake Total 3626.667 5333.333 2424.333 Output Total 875 Balance 2751.667 5333.333 2424.333 General: Oriented x3, Mild distress HEENT: PERRLA, EOMI Neck: Supple, No JVD Neuro: Alert, Non Focal, Oriented Times 3 Cardiovascular: Regular rate, Normal S1, Normal S2 Respiratory: Chest non-tender, No respiratory distress, Other (mild crackles) Abdomen: Normal bowel sounds, Soft, No tenderness Extremities: No clubbing, No cyanosis, No edema Skin: No rashes, No breakdown - Results Results: Laboratory Results WBC 8.2 x10^3/uL (4.8-10.8) 05/11/21 05:13 RBC 3.13 10^6/uL (4.20-5.40) L 05/11/21 05:13 Hgb 9.2 g/dL (12.0-16.0) L 05/11/21 05:13 Hct 27.8 % (37.0-47.0) L 05/11/21 05:13 MCV 88.8 fL (81.0-99.0) 05/11/21 05:13 MCH 29.4 pg (27.0-31.0) 05/11/21 05:13 MCHC 33.1 g/dL (32.0-36.0) 05/11/21 05:13 RDW 13.0 % (12.0-15.0) 05/11/21 05:13 Plt Count 158 10^3/uL (130-450) 05/11/21 05:13 MPV 9.4 fL (7.9-10.8) 05/11/21 05:13 Neut # (Auto) 5.2 10^3/uL (1.5-6.6) 05/11/21 05:13 Lymph # (Auto) 1.7 10^3/uL (1.5-3.5) 05/11/21 05:13 [place] # (Auto) 0.7 10^3/uL (0.0-1.0) 05/11/21 05:13 Eos # (Auto) 0.5 10^3/uL (0.0-0.7) 05/11/21 05:13 Baso # (Auto) 0.0 10^3/uL (0.0-0.1) 05/11/21 05:13 Absolute Nucleated RBC 0.00 x10^3/uL 05/11/21 05:13 Nucleated RBC % 0.0 /100WBC 05/11/21 05:13 PT 12.8 secs (9.9-12.6) H 05/07/21 15:55 INR 1.2 (0.8-1.2) 05/07/21 15:55 Sodium 136 mmol/L (135-145) 05/11/21 05:13 Potassium 3.4 mmol/L (3.5-5.0) L 05/11/21 05:13 Chloride 106 mmol/L (101-111) 05/11/21 05:13 Carbon Dioxide 21 mmol/L (21-32) 05/11/21 05:13 Anion Gap 9.0 (6-13) 05/11/21 05:13 BUN 12 mg/dL (6-20) 05/11/21 05:13 Creatinine 0.7 mg/dL (0.4-1.0) 05/11/21 05:13 Estimated GFR (MDRD) 85 (>89) L 05/11/21 05:13 Glucose 112 mg/dL (70-100) H 05/11/21 05:13 Calcium 7.9 mg/dL (8.5-10.3) L 05/11/21 05:13 Magnesium 2.2 mg/dL (1.7-2.8) 05/07/21 15:02 Total Bilirubin 0.7 mg/dL (0.2-1.0) 05/07/21 15:02 AST 25 IU/L (10-42) 05/07/21 15:02 ALT 27 IU/L (10-60) 05/07/21 15:02 Alkaline Phosphatase 75 IU/L (42-121) 05/07/21 15:02 Total Protein 7.0 g/dL (6.7-8.2) 05/07/21 15:02 Albumin 4.1 g/dL (3.2-5.5) 05/07/21 15:02 Globulin 2.9 g/dL (2.1-4.2) 05/07/21 15:02 Albumin/Globulin Ratio 1.4 (1.0-2.2) 05/07/21 15:02 Nasal Adenovirus (PCR) NOT DETECTED 05/07/21 15:07 Nasal B. parapertussis DNA (PCR) NOT DETECTED 05/07/21 15:07 Nasal Coronavir 229E PCR NOT DETECTED 05/07/21 15:07 Nasal Coronavir HKU1 PCR NOT DETECTED 05/07/21 15:07 Nasal Coronavir NL63 PCR NOT DETECTED 05/07/21 15:07 Nasal Coronavir OC43 PCR NOT DETECTED 05/07/21 15:07 Nasal Enterovir/Rhinovir PCR NOT DETECTED 05/07/21 15:07 Nasal Influenza B PCR NOT DETECTED 05/07/21 15:07 Nasal Influenza A PCR NOT DETECTED 05/07/21 15:07 Nasal Parainfluen 1 PCR NOT DETECTED 05/07/21 15:07 Nasal Parainfluen 2 PCR NOT DETECTED 05/07/21 15:07 Nasal Parainfluen 3 PCR NOT DETECTED 05/07/21 15:07 Nasal Parainfluen 4 PCR NOT DETECTED 05/07/21 15:07 Nasal RSV (PCR) NOT DETECTED 05/07/21 15:07 Nasal B.pertussis DNA PCR NOT DETECTED 05/07/21 15:07 Nasal C.pneumoniae (PCR) NOT DETECTED 05/07/21 15:07 [place] Human Metapneumo PCR NOT DETECTED 05/07/21 15:07 Nasal M.pneumoniae (PCR) NOT DETECTED 05/07/21 15:07 Nasal SARS-CoV-2 (PCR) NOT DETECTED 05/07/21 15:07 Blood Type A POSITIVE 05/07/21 15:02 Antibody Screen NEGATIVE 05/07/21 15:02 ABX Reporting Has patient been on IV antibiotics over the past 48 hours?: No
--- NOTE | 2021-05-11 12:19 | XRAY Report ---
PROCEDURE: Knee 2 View LT INDICATIONS: left knee swelling and pain TECHNIQUE: 2 views of the left knee(s) were acquired. COMPARISON: None. FINDINGS: Bones: Cortical defect in the lateral margin of the base of the lateral eminence of the tibia. Soft tissues: No joint effusion. No suspicious soft tissue calcifications. IMPRESSION: Fracture involving the base of the lateral eminence of the tibia. Reviewed by: Jacey Bernstein MD, PhD on 05/11/2021 12:18 PM PDT Approved by: Jacey Bernstein MD, PhD on 05/11/2021 12:18 PM PDT Station ID: [id number]
[2021-05-11 14:08] LABS: MEAN CORPUSCULAR HEMOGLOBIN 29.1 pg (27.0-31.0); MEAN CORPUSCULAR HGB CONC 32.3 g/dL (32.0-36.0); MEAN CORPUSCULAR VOLUME 90.1 fL (81.0-99.0); RED BLOOD COUNT 3.44 10^6/uL (4.20-5.40); WHITE BLOOD COUNT 8.4 x10^3/uL (4.8-10.8)
[2021-05-12] MEDS: SODIUM CHLORIDE FLUSH 0.9% 10 ML SYRINGE IVP SCH ×2 (00:24→08:03)
[2021-05-12] MEDS: KETOROLAC 30 MG/ML VIAL IVP PRN ×2 (01:59→08:02)
[2021-05-12] MEDS: oxyCODONE 5 MG TABLET PO PRN (04:07)
[2021-05-12] MEDS: ACETAMINOPHEN 325 MG TABLET PO PRN (04:07)
--- NOTE | 2021-05-12 07:16 | DISCHARGE SUMMARY ---
"Discharge Summary Admit Date: 05/07/21 Discharge Date: 05/12/21 Discharging Provider: Dominique Hansonhotu Code Status: Attempt Resuscitation Condition at Discharge: Stable Discharge Disposition: SNF DC/Xfer Discharge Facility [facility]: [facility] - DIAGNOSES Admission Diagnoses: Left hip fracture Left elbow effusion Fall due to stumbling Discharge Diagnoses with Status of Each Condition: Left hip fracture: Patient going to [facility] for rehab Left Knee Base fracture: Stable. Left knee brace ordered. Patient may bear full weight as tolerated. Pain management as needed Left elbow effusion: Improved/resolved Fall due to stumbling: It was a mechanical fall. - HPI History of Present Illness: This is a 61-year-old female who has no major medical illnesses and is not on an y medications. The only encounter I can find in our medical record system is a walk-in clinic visit in October 2020 where she was seen for cellulitis of the heel. They do not list a primary care provider for her. She does have a previous history of a fall with a hip fracture. Today she was in a garden store, and tripped over a wagon in the garden store, landed on her left hip with severe pain. She was brought in by ambulance. She required fentanyl because of the severe pain. She was seen by our emergency room provider where a temperature was 36.9. Heart rate 78. Respirations 16. Blood pressure 132/81. 97% saturated on room air. Physical exam had an alert oriented female, negative pulmonary/cardiac/abdomen. External rotation of the left hip. Distal pulses intact. Labs were essentially normal, coronavirus negative, and a hip film showed a moderately displaced subcapital left femoral neck fracture. The ER provider did speak to orthopedics. They are asking us to place the patient under our service for admission and they will see the patient in consult. From a preoperative cardiac evaluation perspective the patient has no history of [place], arrhythmia, atrial fibrillation, valvular heart disease, pulmonary disease or renal disease. This document was made in part using voice recognition software. While efforts are made to proofread this document, sound alike and grammatical errors may occur. (Zeny Morales) This is a 61-year-old female with no significant past medical history who presents today after a fall complaining of left hip pain. She was at her daughter's workplace when she stumbled over a handle on the ground and fell on her left side. She immediately complained of left-sided hip pain and minor left arm pain. She denies any syncope or loss of consciousness. She did not feel dizzy or lightheaded prior to the fall. She currently states that her left hip pain is controlled with the opiates that she is receiving. She states she fell back in July 2011 and suffered a right hip fracture at that time. She reports she is normally quite active. She denies any cardiac history including coronary artery disease, arrhythmia, heart failure. She is able to walk up a flight of stairs and do cleaning around the home without any chest pain. (Kemal Mejia) - CONSULTS | PROCEDURES Procedures: Was taken to surgery by the orthopedic surgeon. Left hip was successfully repaired.. Surgery was unremarkable. The patient was then evaluated by physical therapy who determined she would benefit from longterm facility placement for rehab. Patient's pain was well managed during her time here. She also worked with physical therapy daily while here. On the day before discharge she complained of left knee pain and swelling. X- ray of the left knee showed fracture of the base of the tibia. This was discussed with orthopedic who recommend that continuing with the plan of physical therapy. The patient may bear full weight on the leg. A left knee hinged brace was prescribed. The patient was discharged in stable condition. She is to follow-up with orthopedic in the outpatient setting as scheduled. - ALLERGIES Allergies/Adverse Reactions: Allergies Allergy/AdvReac Type Severity Reaction Status Date / Time No Known Drug Allergies Allergy Verified 05/07/21 15:11 - MEDICATIONS Home Medications: Ambulatory Orders Medication Instructions Recorded Confirmed Enoxaparin [Lovenox] 40 mg SUBQ DAILY 14 Days #14 syr 05/12/21 oxyCODONE [Roxicodone] 5 mg PO Q4HR PRN 4 Days #24 tablet 05/12/21 - PHYSICAL EXAM AT DISCHARGE General Appearance: positive: Alert, Mild distress, Moderate distress Eyes Bilateral: positive: PERRL, EOMI ENT: positive: No signs of dehydration Neck: positive: No JVD, Trachea midline Respiratory: positive: Chest non-tender, No respiratory distress, Other (Mild crackles) Cardiovascular: positive: No murmur Abdomen: positive: Non-tender, No organomegaly, Nml bowel sounds, No distention. negative: Guarding, Rebound Back: positive: Nml inspection Skin: positive: Color nml, Warm, Dry Extremities: positive: Nml appearance, No pedal edema Neurologic/Psychiatric: positive: Oriented x3, Mood/affect nml - LABS Result Diagrams: 05/11/21 13:56 05/11/21 05:13 - TIME SPENT Time Spent in Discharge (Minutes): 25"
--- NOTE | 2021-05-12 07:21 | Discharge Plan ---
"Discharge Plan for SNF / DESTINY - Discharge Plan And Transition Orders Problem Reviewed?: Yes Disposition: 03 SNF DC/Xfer Condition: Stable Allergies and Adverse Reactions: Allergies Allergy/AdvReac Type Severity Reaction Status Date / Time No Known Drug Allergies Allergy Verified 05/07/21 15:11 Health Concerns: You were admitted on 05/08/21 after a mechanical fall. You sustained a left hip fracture. He was seen by orthopedic surgery and underwent surgery. After surgery her pain was controlled appropriately With Toradol, Tylenol, oxycodone and morphine as needed. For discharge you were noted to have some swelling and pain in the left knee. An x-ray of the knee showed Fracture involving the base of the lateral eminence of the tibia. This was discussed with orthopedic. It is safe to proceed with physical therapy bearing full weight on the knee. Left knee hinged brace was recommended. You had a left elbow effusion as well for which no fracture was noted on imaging. Recommendation by orthopedics is for repeat of x-ray of the left elbow in 7 days. You were seen by physical therapy who recommended custodial facility for rehab. You are being transferred to [facility] for further rehab The above was discussed with you. You expressed understanding and are agreeable with the plan. - SNF / DETENTION Transition Orders Admit to (Facility): [facility] Discharge Diagnosis: Closed left hip fracture. Status post repair. Left elbow effusion. Improved. Left knee base fracture. Stable. Pain management. Knee brace prescribed. Mechanical fall. Medicare Certification Statement: I certify that Post Hospital custodial care is medically necessary on a continuing basis for any of the conditions for which she/he is receiving care during hospitalization. Notify PCP of admission and forward orders to primary provider for signature. Weight on admission and: Daily Other Notification Orders: Call PCP immediately if patient develops dyspnea, chest pain/tightness or edema. House Bowel Program: Yes Additional Bowel Program Orders: If no BM after 2 days, nurse may give M.O.M. 30ml PO PRN and/or ducolax Supp 1 W[place] and/or GENEVA 250mg P.O., and/or senna 1-2 tabs PO. On day 3 nurse may give repeat above order until residents constipation is resolved. Medication Orders: PLEASE REFER TO THE DISCHARGE MEDICATION LIST. - Medications New Prescriptions: oxyCODONE [Roxicodone] 5 mg PO Q4HR PRN 4 Days #24 tablet PRN Reason: Pain Enoxaparin [Lovenox] 40 mg SUBQ DAILY 14 Days #14 syr - Diet Texture: Regular - Therapies | Activity Therapy: Evaluation | Treat if indicated: PT, OT Rehabilitation Potential: Return to independent living Activity: Wt Bearing as Tolerated Weight Bearing: Full Weight Assistance Devices: Walker Follow Up: With orthopedic surgery as chedule With primary care physician as needed"
[2021-05-12] MEDS: polyethylene glycoL 3350 17 GM PACKET PO SCH (08:01)
[2021-05-12] MEDS: ENOXAPARIN 40 MG/0.4 ML SYRINGE SUBQ SCH (08:02)
[2021-05-12] MEDS: SENNA 8.6 MG TABLET PO SCH (08:02)
[2021-05-12 08:51] VITALS: BP 153/86
--- NOTE | 2021-05-12 09:49 | PROVIDER PROGRESS NOTE ---
Subjective - General Admit Date: 05/07/21 Procedure Date: 05/08/21 Post Op Days: 4 Procedure Performed: Left hip hemiarthroplasty - Review of Systems Wound/Incisions: positive: Dressing dry and intact General: positive: No symptoms. negative: Other (Pain is much improved since surgery yesterday to left hip) Pulmonary: positive: No symptoms Cardiovascular: positive: No symptoms Gastrointestinal: positive: No symptoms All Other Systems: positive: Reviewed and negative Objective - Patient Data Vital Signs: Vital Signs x48h Temp Pulse Resp BP Pulse Ox 05/12/21 08:00 36.6 C 98 18 153/86 H 97 Intake & Output: Intake and Output Totals x24h 05/10/21 05/11/21 05/12/21 23:59 23:59 23:59 Intake Total 5333.333 3864.333 860 Output Total 450 Balance 5333.333 3414.333 860 - Lab Results Lab Results: 05/11/21 13:56 05/11/21 05:13 Other Lab Results: Lab Results x24hrs 05/11/21 Range/Units 13:56 WBC 8.4 (4.8-10.8) x10^3/uL RBC 3.44 L (4.20-5.40) 10^6/uL Hgb 10.0 L (12.0-16.0) g/dL Hct 31.0 L (37.0-47.0) % MCV 90.1 (81.0-99.0) fL MCH 29.1 (27.0-31.0) pg MCHC 32.3 (32.0-36.0) g/dL RDW 13.0 (12.0-15.0) % Plt Count 175 (130-450) 10^3/uL MPV 9.0 (7.9-10.8) fL - Imaging Results Radiology Imaging: positive: EMP read indepedently - Current Medications Current Medications: Current Medications Generic Name Dose Route Start Last Admin Trade Name Freq PRN Reason Stop Dose Admin Acetaminophen 650 - 975 mg 05/08/21 14:26 05/12/21 04:07 Acetaminophen 325 Mg Tablet PO 650 mg Q4HR PRN Administration PAIN Enoxaparin Sodium 40 mg 05/08/21 18:54 05/12/21 08:02 Enoxaparin 40 Mg/0.4 Ml Syringe SUBQ 40 mg DAILY ANA Administration Ketorolac Tromethamine 30 mg 05/08/21 19:47 05/12/21 08:02 Ketorolac 30 Mg/Ml Vial IVP 05/13/21 19:46 30 mg Q6HR PRN Administration PAIN Morphine Sulfate 2 mg 05/07/21 16:26 05/08/21 11:46 Morphine 2 Mg/Ml Carpuject IVP 2 mg Q2HR PRN Administration Pain 8 to 10 Oxycodone HCl 5 mg 05/08/21 14:26 05/12/21 04:07 Oxycodone 5 Mg Tablet PO 5 mg Q4HR PRN Administration PAIN Polyethylene Glycol 17 gm 05/11/21 09:00 05/12/21 08:01 Polyethylene Glycol 3350 17 Gm Packet PO 17 gm DAILY ANA Administration Senna 8.6 - 17.2 mg 05/10/21 09:00 05/12/21 08:02 Senna 8.6 Mg Tablet PO 8.6 mg DAILY ANA Administration Sodium Chloride 10 ml 05/08/21 17:00 05/12/21 08:03 Sodium Chloride Flush 0.9% 10 Ml Syringe IVP 10 ml 0100,0900,1700 ANA Administration Sodium Chloride 10 ml 05/08/21 14:26 05/11/21 19:37 Sodium Chloride Flush 0.9% 10 Ml Syringe IVP 10 ml PRN PRN Administration NEEDED PER PROVIDER ORDERS - Physical Exam Wound/Incisions: positive: Healing well Neurologic/Psychiatric: negative: Oriented x3 (Left knee is stable, no joint line tenderness, extensor mechanism intact, flexion to 90 degrees) Impression/Plan - Problem List Problem List: Status post left hip hemiarthroplasty. She is making good progress, ambulate with walker, weightbearing as tolerated Subtle lateral nondisplaced lateral tibial eminence fracture left knee: Suggest hinged knee brace, weight-bear as tolerated. She can work on range of motion fully to left knee. Recheck in 4 weeks in the orthopedic clinic; would continue deep venous thrombosis prophylaxis for total of 6 weeks from time of surgery
== END 2021-05-12 09:30 | DRG 522 ==
LOC: EDUNIT# → ED 14:50 → MS3 16:26
PROVIDERS: ADMIT Specialist; ATTEND Internal Medicine
PROC: 0SRS019 Replacement of Left Hip Joint, Femoral Surface with Metal Synthetic Substitute, Cemented, Open Approach (ICD-10-PCS; principal; 2021-05-08 13:50)
DX: S72.012A Unspecified intracapsular fracture of left femur, initial encounter for closed fracture (principal); S82.112A Displaced fracture of left tibial spine, initial encounter for closed fracture; W18.31XA Fall on same level due to stepping on an object, initial encounter; Y92.512 Supermarket, store or market as the place of occurrence of the external cause; M81.0 Age-related osteoporosis without current pathological fracture; M25.422 Effusion, left elbow; Z20.822 Contact with and (suspected) exposure to COVID-19; I44.0 Atrioventricular block, first degree; E66.9 Obesity, unspecified; Z68.31 Body mass index [BMI] 31.0-31.9, adult
CPT/HCPCS: 0202U; 36415; 64450; 71045; 73080; 73502; 73560; 80048; 80053; 83735; 85025; 85027; 85610; 86850; 86900; 86901; 93005; 96374; 97116; 97161; 97166; 97530; 99284; 99285; A9270; C1713; J0131; J0690; J1170; J1650; J2060; J7120

== ENCOUNTER 2021-05-18 12:04 | Outpatient (CLI) | payer OTHER ==
--- NOTE | 2021-05-18 15:10 | XRAY Report ---
PROCEDURE: Knee 4 View LT INDICATIONS: PAIN IN LEFT KNEE TECHNIQUE: 4 views of the left knee were acquired. COMPARISON: Left knee radiographs 05/11/2021 FINDINGS: Bones: A subtle linear lucency is again seen at the lateral aspect of the central eminence of the tib ia. Soft tissues: Moderate joint effusion with probable fat fluid level. No suspicious soft tissue calcif ications. IMPRESSION: Unchanged probable fracture at the lateral aspect of the central eminence of the tibia. Moderate lipohemarthrosis. CT or MRI may be obtained for further evaluation if indicated clinically. Reviewed by: Allen England MD on 05/18/2021 3:09 PM PDT Approved by: Allen England MD on 05/18/2021 3:09 PM PDT Station ID: [id number]
--- NOTE | 2021-05-18 15:19 | XRAY Report ---
PROCEDURE: Elbow 3 View LT INDICATIONS: PAIN IN LEFT ELBOW TECHNIQUE: 3 views of the elbow were acquired. COMPARISON: 05/07/2021 FINDINGS: Bones: There is a very subtle radial head fracture. No suspicious bony lesions. Soft tissues: Continued elbow joint effusion. No suspicious soft tissue calcifications. IMPRESSION: Very subtle radial head fracture associated with continued elbow joint effusion. Reviewed by: Phu Sawyer MD on 05/18/2021 3:18 PM PDT Approved by: Phu Sawyer MD on 05/18/2021 3:18 PM PDT Station ID: [id number]
--- NOTE | 2021-05-18 15:23 | XRAY Report ---
PROCEDURE: Forearm LT INDICATIONS: PAIN IN LEFT FOREARM TECHNIQUE: 2 views of the forearm were acquired. COMPARISON: Left elbow from today, left elbow from 05/07/2021 FINDINGS: Bones: Subtle deformity of the radial head from fracture. No other fractures or dislocations. No susp icious bony lesions. Soft tissues: No suspicious soft tissue calcifications or masses. IMPRESSION: Subtle radial head fracture. No other fractures or dislocations. Reviewed by: Phu Sawyer MD on 05/18/2021 3:21 PM PDT Approved by: Phu Sawyer MD on 05/18/2021 3:21 PM PDT Station ID: [id number]
--- NOTE | 2021-05-18 15:30 | XRAY Report ---
PROCEDURE: Wrist 3 View LT INDICATIONS: PAIN IN LEFT WRIST TECHNIQUE: 3 views of the wrist were acquired. COMPARISON: None. FINDINGS: No acute fracture. Scattered subchondral sclerosis and spurring. Soft tissues: No suspicious soft tissue calcifications. IMPRESSION: Mild degenerative changes. If the patient's pain or other symptoms persist, consider further evaluati on with MRI. Reviewed by: Kristopher Glover MD on 05/18/2021 3:28 PM PDT Approved by: Kristopher Glover MD on 05/18/2021 3:28 PM PDT Station ID: [id number]
== END 2021-05-18 23:59 | disposition home or self-care (01) ==
LOC: DI.N 12:04
PROVIDERS: ATTEND Orthopaedic Surgery
DX: M19.032 Primary osteoarthritis, left wrist (principal); S52.122A Displaced fracture of head of left radius, initial encounter for closed fracture; M25.562 Pain in left knee

== ENCOUNTER 2021-07-10 15:15 | Outpatient (CLI) | payer OTHER ==
--- NOTE | 2021-07-10 16:36 | XRAY Report ---
PROCEDURE: Elbow 3 View LT INDICATIONS: FRACTURE OF HEAD OF LEFT RADIUS TECHNIQUE: 3 views of the elbow were acquired. COMPARISON: X-ray elbow 05/18/2021 FINDINGS: Bones: Healing radial head fracture is present with stable alignment. No suspicious bony lesions. Soft tissues: Minimal elbow joint effusion. No suspicious soft tissue calcifications. IMPRESSION: Healing radial head fracture with stable alignment. Reviewed by: Nusrat Ye MD on 07/10/2021 4:35 PM PDT Approved by: Nusrat Ye MD on 07/10/2021 4:35 PM PDT Station ID: [id number]
--- NOTE | 2021-07-10 16:38 | XRAY Report ---
PROCEDURE: Knee 4 View LT INDICATIONS: NONDISPLACED FX OF L TIBIAL SPINE TECHNIQUE: 4 views of the left knee(s) were acquired. COMPARISON: X-ray knee 05/18/2021, 05/11/2021 FINDINGS: Bones: There is stable alignment with minimal interval change of the previous cortical defect at the base of the lateral tibial eminence. No suspicious bony lesions. Soft tissues: Persistent appearance of effusion with less prominent appearance of fat fluid level. No suspicious soft tissue calcifications. IMPRESSION: Stable interval appearance of probable fracture of the lateral eminence of the tibia wit h decreased lipohemarthrosis. Reviewed by: Nusrat Ye MD on 07/10/2021 4:37 PM PDT Approved by: Nusrat Ye MD on 07/10/2021 4:37 PM PDT Station ID: [id number]
--- NOTE | 2021-07-10 16:39 | XRAY Report ---
PROCEDURE: Hip w/Pelvis 2-3V LT INDICATIONS: HX OF LEFT HIP HEMIARTHROPLASTY TECHNIQUE: AP pelvis with lateral view(s) of the left hip(s). COMPARISON: X-ray 05/08/2021 FINDINGS: Bones: No fractures or dislocations. Pelvic ring appears intact. No suspicious bony lesions. Stab le appearance of left hip arthroplasty and right femoral fixation. Hardware is intact without evidenc e of hardware fracture or periprosthetic lucency. Soft tissues: The visualized bowel gas pattern is normal. No suspicious soft tissue calcifications. IMPRESSION: Stable postoperative appearance as above. Reviewed by: Nusrat Ye MD on 07/10/2021 4:38 PM PDT Approved by: Nusrat Ye MD on 07/10/2021 4:38 PM PDT Station ID: [id number]
== END 2021-07-10 23:59 | disposition home or self-care (01) ==
LOC: DI.N 15:15
PROVIDERS: ATTEND Physician Assistant
DX: Z96.642 Presence of left artificial hip joint (principal); S52.125D Nondisplaced fracture of head of left radius, subsequent encounter for closed fracture with routine healing; S82.115A Nondisplaced fracture of left tibial spine, initial encounter for closed fracture

== ENCOUNTER 2021-10-29 13:47 | Outpatient (CLI) | payer OTHER ==
--- NOTE | 2021-10-29 14:26 | XRAY Report ---
PROCEDURE: Hand 3 View LT INDICATIONS: FALL/LEFT SIDED PAIN TECHNIQUE: 3 views of the hand(s) acquired. COMPARISON: None FINDINGS: Bones: Impacted fractures are seen involving the third and fourth metacarpal necks. Age-appropriate d egenerative changes are seen. Soft tissues: No suspicious soft tissue calcifications. IMPRESSION: Impacted fractures can be seen involving the third and fourth metacarpal necks. Reviewed by: Jorgito Brasher MD on 10/29/2021 1:24 PM [facility] Approved by: Jorgito Brasher MD on 10/29/2021 1:24 PM [facility] Station ID: [id number]
--- NOTE | 2021-10-29 14:27 | XRAY Report ---
PROCEDURE: Knee 3 View LT INDICATIONS: FALL/LEFT SIDED PAIN TECHNIQUE: 3 views of the left knee(s) were acquired. COMPARISON: 05/11/2021, 05/18/2021, 07/10/2021 FINDINGS: Bones: No acute fractures or dislocations. The previously seen lateral tibial fracture is not well s een. No suspicious bony lesions. Age-appropriate degenerative changes are seen. Soft tissues: There is mild to moderate joint effusion. No suspicious soft tissue calcifications. IMPRESSION: Age-appropriate degenerative changes can be seen by plain film. The previously seen lateral tibial fracture is not well seen by plain film. If it would be helpful for clinical management decision making, please consider a dedicated, schedule d knee MRI for further evaluation (assuming that there is no contraindication). Reviewed by: Jorgtio Brasher MD on 10/29/2021 1:26 PM [facility] Approved by: Jorgito Brasher MD on 10/29/2021 1:26 PM [facility] Station ID: [id number]
== END 2021-10-29 23:59 | disposition home or self-care (01) ==
LOC: DI.N 13:47
PROVIDERS: ATTEND Nurse Practitioner
DX: S80.212A Abrasion, left knee, initial encounter (principal); M17.12 Unilateral primary osteoarthritis, left knee; S62.303A Unspecified fracture of third metacarpal bone, left hand, initial encounter for closed fracture; S62.305A Unspecified fracture of fourth metacarpal bone, left hand, initial encounter for closed fracture

== ENCOUNTER 2021-10-31 06:44 | Emergency (ER) | payer OTHER ==
--- NOTE | 2021-10-31 08:31 | CT Report ---
PROCEDURE: HEAD WO INDICATIONS: Fall, left head injury, worsening headache TECHNIQUE: Noncontrast 4.5 mm thick angled axial sections acquired from the foramen magnum to the vertex. For r adiation dose reduction, the following was used: automated exposure control, adjustment of mA and/or kV according to patient size. COMPARISON: None. FINDINGS: Image quality: Excellent. CSF spaces: Basal cisterns are patent. No extra-axial fluid collections. Ventricles are normal in size and shape. Brain: No midline shift. No intracranial masses or hemorrhage. Rock-white matter interface is norm al. Skull and face: Calvarium and visualized facial bones are intact, without suspicious lesions. Sinuses: Visualized sinuses and mastoids are clear. IMPRESSION: No acute intracranial finding. Reviewed by: Roderick Lee MD on 10/31/2021 8:30 AM PST Approved by: Roderick Lee MD on 10/31/2021 8:30 AM [facility] Station ID: [id number]
--- NOTE | 2021-10-31 08:39 | ED Physician Documentation ---
PD HPI HEAD INJURY - Stated complaint Stated Complaint: LT ARM INJ - Chief complaint Chief Complaint: Heent - History obtained from History obtained from: Patient - History of Present Illness Mechanism of head injury: Fell Timing - onset: How many days ago (3) Location of injury: Left, Front Quality of pain: Pain, Throbbing Associated symptoms: No: LOC, AMS, Amnesia, Nausea / vomiting, Neck pain, Paresthesias, Seizures, Ear drainage, Nasal drainage Symptoms improve with: Rest Symptoms worsen with: Palpation, Movement Contributing factors: No: Anticoagulated Similar symptoms before: Diagnosis (concussion) Recently seen: Clinic - Additional information Additional information: 61-year-old female has had a fall After zoroastrianism on Saturday. She tripped over a sandbag fell onto her left side and injured her left hand and knee. She hit her head on the left side and has some pain to her jaw with normal occlusion. She has had a problem with migraine headaches every few days and she now has a headache to the top part of her head that is little different than her migraine headache. She denies any nausea or vomiting denies any clumsiness difficulty concentrating or being off balance. She does have a headache. She has been mitigating her headache by driving find detailed pictures. She was evaluated at the urgent care had x-rays of her knee and her hand and was found to have a fracture of the metacarpals in the left hand. She was given a Velcro splint. She comes into the emergency department today not wearing the splint. She has a lot of swelling to her hand. Her concern today is the head injury and the persistent headache. She does have an appointment to see her dentist this afternoon at 4:00. He does have imaging equipment. Review of Systems Constitutional: denies: Fever Eyes: denies: Decreased vision Ears: denies: Ear pain Nose: denies: Rhinorrhea / runny nose, Congestion Throat: denies: Sore throat Cardiac: denies: Chest pain / pressure, Palpitations Respiratory: denies: Dyspnea, Cough GI: denies: Abdominal Pain, Nausea, Vomiting, Constipation, Diarrhea : denies: Dysuria, Frequency Skin: denies: Rash Musculoskeletal: denies: Neck pain, Back pain, Extremity pain Neurologic: reports: Headache, Head injury. denies: Generalized weakness, Focal weakness, Numbness, Difficulty speaking, Confused, Altered mental status, LOC PD PAST MEDICAL HISTORY - Past Medical History Past Medical History: Yes Cardiovascular: None Respiratory: Sleep apnea Neuro: Migraines Endocrine/Autoimmune: None GI: None STEEL WORKER: None : None HEENT: None Psych: None Musculoskeletal: None Derm: None - Past Surgical History Past Surgical History: Yes Ortho: Hip replacement - Allergies Allergies/Adverse Reactions: Allergies Allergy/AdvReac Type Severity Reaction Status Date / Time No Known Drug Allergies Allergy Verified 10/31/21 06:58 - Social History Does the pt smoke?: No Smoking Status: Never smoker Does the pt drink ETOH?: No Does the pt have substance abuse?: No - Immunizations Immunizations are current?: Yes - POLST Patient has POLST: No PD ED PE NORMAL - Vitals Vital signs reviewed: Yes (hypertensive ) - General General: Alert and oriented X 3, No acute distress, Well developed/nourished - HEENT HEENT: Atraumatic, PERRL, EOMI - Neck Neck: Supple, no meningeal sign, No bony TTP - Cardiac Cardiac: RRR, No murmur - Respiratory Respiratory: No respiratory distress, Clear bilaterally - Abdomen Abdomen: Normal bowel sounds, Soft, Non tender, Non distended, No organomegaly - Back Back: No CVA TTP, No spinal TTP - Derm Derm: Normal color, Warm and dry, No rash - Extremities Extremities: Other (There is swelling to the left hand with ecchymosis that extends into the forearm. 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, No motor deficit, No sensory deficit, Normal speech Eye Opening: Spontaneous Motor: Obeys Commands Verbal: Oriented GCS Score: 15 - Psych Psych: Normal mood, Normal affect Results - Vitals Vitals: Vital Signs - 24 hr 10/31/21 06:55 Temperature 36.2 C L Heart Rate 93 Respiratory 16 Rate Blood Pressure 156/77 H O2 Saturation 96 Oxygen O2 Source Room air - Rads (name of study) CT head Radiology: Prelim report reviewed (Impression: No acute intracranial finding.), EMP read indepedently, See rad report Procedures - Splint (location) left hand Splint applied by: Tech Type of splint: Fiberglass, Ulnar gutter Other: Patient tolerated well, No complications, Neurovascular intact, Good alignment PD MEDICAL DECISION MAKING - ED course Complexity details: reviewed old records, reviewed results, re-evaluated patient, considered differential, d/w patient ED course: 61-year-old female with a fall 2 days ago has significant ecchymosis to the broken hand and she is not wearing her splint. She has had a head injury and has a headache that has been persistent. She is worried today about the head injury. She does have an appointment to see her dentist this afternoon for some pain to the left side of her face. Today her CT scan is without evidence of acute injury. I reviewed the patient's films finding impacted distal metacarpal fractures and we have placed the patient into a fiberglass ulnar gutter splint. She indicates this is more comfortable than the Velcro splint. She does accept Toradol for treatment of her headache. Departure - Departure Disposition: 01 Home, Self Care Clinical Impression: Concussion Qualifiers: Encounter type: initial encounter Loss of consciousness presence/duration: without LOC Qualified Code(s): S06.0X0A - Concussion without loss of consciousness, initial encounter Hand fracture, left Qualifiers: Encounter type: initial encounter Fracture type: closed Qualified Code(s): S62.92XA - Unspecified fracture of left wrist and hand, initial encounter for closed fracture Condition: Stable Instructions: ED Concussion, ED Fx Hand Closed, ED Splint Care Fiberglass Follow-Up: [facility] [Provider Group] Barry Abernathy MD [Provider Admit Priv/Credential] - Comments: Amy, today we did not find any evidence of internal bleeding on the CAT scan of your head. A postconcussive headache can be one of the last symptoms to resolve and this can sometimes be frustrating and the length of time this last. For the hand fracture my recommendation is to leave it in the splint as long as you can tolerate that and do some range of motion with your fingers daily. Follow-up with orthopedics for potential casting in the next week.
[2021-10-31] MEDS ORDERED: KETOROLAC 60 MG/2 ML VIAL IM STA (08:42)
[2021-10-31 09:16] VITALS: BP 146/100
== END 2021-10-31 09:16 | disposition home or self-care (01) ==
LOC: ED 06:44
DX: S06.0X0A Concussion without loss of consciousness, initial encounter (principal); S62.92XA Unspecified fracture of left hand, initial encounter for closed fracture; S62.309A Unspecified fracture of unspecified metacarpal bone, initial encounter for closed fracture; W01.0XXA Fall on same level from slipping, tripping and stumbling without subsequent striking against object, initial encounter
CPT/HCPCS: 29125; 99284

== ENCOUNTER 2021-11-14 07:47 | Outpatient (CLI) | payer OTHER ==
--- NOTE | 2021-11-14 11:20 | XRAY Report ---
PROCEDURE: Hand 3 View LT INDICATIONS: LEFT 3RD/4TH MC FX TECHNIQUE: 3 views of the hand(s) acquired. COMPARISON: October 29, 2021 FINDINGS: BONES: Diffuse osteopenia. Redemonstrated fracture deformities of the third and fourth metatarsal hea ds without significant change. The carpal bones are normally aligned. SOFT TISSUES: No focal abnormality. IMPRESSION: 1.No significant interval change. Reviewed by: Naman Holbrook MD on 11/14/2021 11:19 AM [facility] Approved by: Naman Holbrook MD on 11/14/2021 11:19 AM [facility] Station ID: [id number]
== END 2021-11-14 07:48 | disposition home or self-care (01) ==
LOC: DI.WOS 07:47
PROVIDERS: ATTEND Physician Assistant
DX: S62.333D Displaced fracture of neck of third metacarpal bone, left hand, subsequent encounter for fracture with routine healing (principal); S62.335D Displaced fracture of neck of fourth metacarpal bone, left hand, subsequent encounter for fracture with routine healing; M85.842 Other specified disorders of bone density and structure, left hand

== ENCOUNTER 2021-11-21 12:34 | Outpatient (CLI) | payer OTHER ==
--- NOTE | 2021-11-22 10:01 | XRAY Report ---
PROCEDURE: Hand 3 View LT INDICATIONS: HAND FRACTURE TECHNIQUE: 3 views of the hand(s) acquired. COMPARISON: X-ray of the left hand, 11/14/2021 and 10/29/2021. FINDINGS: Bones: Mildly impacted third and fourth metacarpal neck fractures are unchanged in alignment. No susp icious bony lesions. Mild osteopenia. Soft tissues: No suspicious soft tissue calcifications. IMPRESSION: Third and fourth metacarpal neck fractures with stable alignment. Reviewed by: Eloy Trivedi MD on 11/22/2021 9:59 AM PST Approved by: Eloy Trivedi MD on 11/22/2021 9:59 AM PST Station ID: [id number]
== END 2021-11-21 12:35 | disposition home or self-care (01) ==
LOC: DI.WOS 12:34
PROVIDERS: ATTEND Physician Assistant
DX: S62.333D Displaced fracture of neck of third metacarpal bone, left hand, subsequent encounter for fracture with routine healing (principal); S62.335D Displaced fracture of neck of fourth metacarpal bone, left hand, subsequent encounter for fracture with routine healing

== ENCOUNTER 2021-12-12 08:02 | Outpatient (CLI) | payer OTHER ==
--- NOTE | 2021-12-12 15:46 | XRAY Report ---
PROCEDURE: Hand 3 View LT INDICATIONS: HAND FRACTURES TECHNIQUE: 3 views of the hand(s) acquired. COMPARISON: Hand x-ray 11/14/2021 FINDINGS: Bones: Mild deformity of the third and fourth metacarpal heads are present with osteopenia. No change in alignment. No suspicious bony lesions. Soft tissues: No suspicious soft tissue calcifications. IMPRESSION: Stable alignment and appearance of third and fourth metacarpal head fractures. Reviewed by: Nusrat Ye MD on 12/12/2021 3:45 PM [facility] [[email or web address]] Approved by: Nusrat Ye MD on 12/12/2021 3:45 PM [facility] [[email or web address]] Station ID: [id number]
== END 2021-12-12 08:03 | disposition home or self-care (01) ==
LOC: DI.WOS 08:02
PROVIDERS: ATTEND Physician Assistant
DX: S62.333D Displaced fracture of neck of third metacarpal bone, left hand, subsequent encounter for fracture with routine healing (principal); S62.335D Displaced fracture of neck of fourth metacarpal bone, left hand, subsequent encounter for fracture with routine healing

== ENCOUNTER 2022-02-14 07:57 | Outpatient (CLI) | payer OTHER ==
[2022-02-14 11:51] LABS: BASOPHILS % (AUTO) 0.7 %; EOSINOPHILS # (AUTO) 0.2 10^3/uL (0.0-0.7); EOSINOPHILS % (AUTO) 2.8 %; HCT - HEMATOCRIT 43.2 % (37.0-47.0); HGB - HEMOGLOBIN 13.8 g/dL (12.0-16.0); LYMPHOCYTES # (AUTO) 2.4 10^3/uL (1.5-3.5); LYMPHOCYTES % (AUTO) 44.9 %; MEAN CORPUSCULAR HEMOGLOBIN 28.2 pg (27.0-31.0); MEAN CORPUSCULAR HGB CONC 31.9 g/dL (32.0-36.0); MEAN CORPUSCULAR VOLUME 88.3 fL (81.0-99.0); MEAN PLATELET VOLUME 9.2 fL (7.9-10.8); MONOCYTES # (AUTO) 0.5 10^3/uL (0.0-1.0); MONOCYTES % (AUTO) 9.2 %; NEUTROPHILS # (AUTO) 2.3 10^3/uL (1.5-6.6); NEUTROPHILS % (AUTO) 42.2 %; PLT - PLATELET COUNT 262 10^3/uL (130-450); RED BLOOD COUNT 4.89 10^6/uL (4.20-5.40); RED CELL DISTRIBUTION WIDTH 12.8 % (12.0-15.0); WHITE BLOOD COUNT 5.4 x10^3/uL (4.8-10.8)
[2022-02-14 12:09] LABS: ALBUMIN 4.3 g/dL (3.2-5.5); ALBUMIN/GLOBULIN RATIO 1.4 (1.0-2.2); ALKALINE PHOSPHATASE 70 IU/L (42-121); ALT ALANINE AMINOTRANSFERASE 15 IU/L (10-60); AST ASPARTATE AMINOTRANSFERASE 18 IU/L (10-42); BILIRUBIN,TOTAL 0.7 mg/dL (0.2-1.0); BUN - BLOOD UREA NITROGEN 19 mg/dL (6-20); CALCIUM 9.7 mg/dL (8.5-10.3); CARBON DIOXIDE - CO2 27 mmol/L (21-32); CHLORIDE 105 mmol/L (101-111); CHOL/HDL RATIO 2.5 (<4.4); CHOLESTEROL 202 mg/dL; CREATININE 0.8 mg/dL (0.4-1.0); GFR - MDRD 73 (>89); GLUCOSE 104 mg/dL (70-100); HDL CHOLESTEROL 80 mg/dL; LDL CHOLESTEROL,CALCULATED 111 mg/dL; LDL/HDL RATIO 1.4 (<4.4); POTASSIUM 4.1 mmol/L (3.5-5.0); SODIUM 140 mmol/L (135-145); TOTAL PROTEIN 7.3 g/dL (6.7-8.2); TRIGLYCERIDES 53 mg/dL; VLDL CHOLESTEROL 11 mg/dL
[2022-02-14 12:11] LABS: THYROID STIMULATING HORMONE 5.41 uIU/mL (0.34-5.60)
[2022-02-15 09:09] LABS: HCV AB <0.1 s/co ratio (0.0-0.9)
== END 2022-02-14 07:58 | disposition home or self-care (01) ==
LOC: LAB.N 07:57
PROVIDERS: ATTEND Registered Nurse
DX: Z13.228 Encounter for screening for other metabolic disorders (principal); Z13.220 Encounter for screening for lipoid disorders; Z13.0 Encounter for screening for diseases of the blood and blood-forming organs and certain disorders involving the immune mechanism; Z11.59 Encounter for screening for other viral diseases
CPT/HCPCS: 36415; 80050; 80061; 83721; 86803; 87522

== ENCOUNTER 2022-04-23 10:38 | Outpatient (CLI) | payer OTHER ==
--- NOTE | 2022-04-24 08:19 | Mammography Report ---
BILATERAL DIGITAL SCREENING MAMMOGRAM 3D/2D: 04/23/2022 CLINICAL: Routine screening. Comparison is made to exams dated: 08/30/2009 mammogram and 12/26/2007 mammogram - [facility]. There are scattered fibroglandular elements in both breasts. No significant masses, calcifications, or other findings are seen in either breast. There has been no significant interval change. IMPRESSION: NEGATIVE There is no mammographic evidence of malignancy. A 1 year screening mammogram is recommended. Based on the Tyrer Cuzick model (a risk assessment model) the patients lifetime risk is 5.3% and her 10 year risk is 2.3%. According to the ACR, ACS, and NCCN guidelines, an annual breast MRI exam addi g with mammogram is recommended if the patients lifetime risk is 20% or greater. This exam was interpreted at Station ID: [id number]. NOTE: For mammograms, a report in lay terms will be sent to the patient. Approximately 15% of breast malignancies will not be visualized mammographically. In the management of a palpable breast mass, a negative mammogram must not discourage biopsy of a clinically suspicious lesion. Electronically Signed By: Aby valdivia/lynette:04/23/2022 12:19:28 ACR BI-RADS Category 1: Negative 3341F PARENCHYMAL PATTERN: (A) - The breast(s) demonstrate(s) scattered fibroglandular densities. BI-RADS CATEGORY: (1) - 1 RECOMMENDATION: (ANNUAL) - Recommend routine annual screening mammography. [id number] 1 year screening LATERALITY: (B)
== END 2022-04-23 10:39 | disposition home or self-care (01) ==
LOC: DI.N 10:38
PROVIDERS: ATTEND Registered Nurse
DX: Z12.31 Encounter for screening mammogram for malignant neoplasm of breast (principal)

== ENCOUNTER 2022-09-12 14:48 | Outpatient (CLI) | payer OTHER | END 2022-09-12 14:49 | disposition home or self-care (01) | LOC: SC 14:48 | PROVIDERS: ATTEND Nurse Practitioner Family | DX: G47.33 Obstructive sleep apnea (adult) (pediatric) (principal); R09.02 Hypoxemia | CPT/HCPCS: 95806 ==

== ENCOUNTER 2022-10-17 10:14 | Outpatient (CLI) | payer OTHER ==
[2022-10-17 10:51] VITALS: BP 118/70
--- NOTE | 2022-10-17 10:51 | SLEEP CARE CONSULTATION ---
Information from patient questionnaire entered by Edelmira Arriola. I have reviewed and concur with the information entered by Edelmira Arriola. This document represents the service I personally performed and the decisions made by , Kaye Iraheta ARNP. History of Present Illness Service Date and Time: 10/17/2022 1014 Initial [place] Sleepiness Scale score: 9 (07/26/2022) Current [place] Sleepiness Scale score: 13 (10/17/22) Additional HPI information: MARY DIAZ returns for follow up and results of the recently performed home sleep study. I explained the pathophysiology behind obstructive sleep apnea. We then spent quite a bit of time discussing different treatment options. For mild obstructive sleep apnea, surgery and oral appliance are alternatives to nasal CPAP therapy but in moderate or severe cases, nasal CPAP is the most effective and reliable treatment. I reviewed the impact of weight changes on sleep apnea and strongly recommended losing weight. Patient was cautioned about risks of drowsy driving until sleepiness symptoms resolve. Sleep Study - Results Type of Sleep Study: Home sleep study (09/12/22) Prior sleep studies: No Polysomnography/Home Sleep Study results: Physician Impression: The quality of the study is fair due to partial loss of airflow signal. The length of the study is adequate (> 240 minutes). Please also see the tabulated and graphic data. 1. Obstructive Sleep Apnea-Hypopnea (ICD-10 G47.33), mild, with an AHI of 5.3/hr and shannan SaO2 of 88%. During the study, the patient had 23 apneas (23 obstructive, 0 central, 0 mixed) and 6 hypopneas. The longest episode lasted 92.0 seconds. The respiratory events occurred independently of sleep stage and body position (supine AHI was 5.0 and non-supine, 5.61). 2. Hypoxemia (ICD-10 R09.02), mild, with the lowest oxygen saturation of 88 % and 1.2 minutes with SaO2 under 90%. Baseline oxygen saturation was normal (Average oxygen saturation was 93%). Allergies and Home Medications Drug allergies reviewed: Yes (NKDA) Home medication list reviewed: Yes (no changes) Review of Systems Review of systems same as previous: Yes (no changes) Physical Exam Vital signs obtained and entered by: EDELMIRA Lora MA Blood Pressure: 118/70 (LEFT ARM) Cuff size: regular Heart Rate: 84 O2 Saturation: 96 Height: 5 ft 11 in Weight: 205 lb 3.2 oz Body Mass Index: 28.6 BMI Classification: Overweight Impression and Plan 1. Obstructive Sleep Apnea-Hypopnea Syndrome, mild, with lowest oxygen sa turation of 88%. Obviously this is the cause of the patients symptoms of unrefreshed sleep, and excessive daytime sleepiness. Positive pressure therapy could benefit migraines. As mentioned above, the patient chose an oral appliance to treat their apnea. A 3 month follow up will be made to see if appliance has reduced symptoms. If so, another polysomnography will be ordered with use of the oral appliance to check efficacy in reducing apnea. * Oral appliance * Attempt to lose weight. * The patient is again cautioned about driving until sleepiness completely resolves. * Return one month after oral appliance obtained. I will assess response to therapy at that time. Counseling Topics: Weight loss health impact Visit Type: In Office Time Spent with Patient (minutes): 20 Provider Statement: I spent 100% of the Face to Face Visit with the patient with greater than 50% spent counseling the patient and coordination of care.
== END 2022-10-17 10:15 | disposition home or self-care (01) ==
LOC: SC 10:14
PROVIDERS: ATTEND Nurse Practitioner Family
DX: G47.33 Obstructive sleep apnea (adult) (pediatric) (principal)
CPT/HCPCS: 99212; 99213

== ENCOUNTER 2023-06-06 10:07 | Outpatient (CLI) | payer OTHER ==
[2023-06-06 13:03] LABS: BASOPHILS % (AUTO) 0.8 %; EOSINOPHILS # (AUTO) 0.1 10^3/uL (0.0-0.7); EOSINOPHILS % (AUTO) 2.7 %; HCT - HEMATOCRIT 44.3 % (37.0-47.0); HGB - HEMOGLOBIN 14.3 g/dL (12.0-16.0); LYMPHOCYTES # (AUTO) 1.8 10^3/uL (1.5-3.5); LYMPHOCYTES % (AUTO) 35.4 %; MEAN CORPUSCULAR HEMOGLOBIN 29.1 pg (27.0-31.0); MEAN CORPUSCULAR HGB CONC 32.3 g/dL (32.0-36.0); MEAN CORPUSCULAR VOLUME 90.2 fL (81.0-99.0); MEAN PLATELET VOLUME 8.9 fL (7.9-10.8); MONOCYTES # (AUTO) 0.5 10^3/uL (0.0-1.0); MONOCYTES % (AUTO) 10.1 %; NEUTROPHILS # (AUTO) 2.6 10^3/uL (1.5-6.6); NEUTROPHILS % (AUTO) 50.4 %; PLT - PLATELET COUNT 268 10^3/uL (130-450); RED BLOOD COUNT 4.91 10^6/uL (4.20-5.40); RED CELL DISTRIBUTION WIDTH 12.6 % (12.0-15.0); WHITE BLOOD COUNT 5.2 x10^3/uL (4.8-10.8)
[2023-06-06 13:34] LABS: ALBUMIN 4.4 g/dL (3.2-5.5); ALBUMIN/GLOBULIN RATIO 1.4 (1.0-2.2); ALKALINE PHOSPHATASE 85 IU/L (42-121); ALT ALANINE AMINOTRANSFERASE 15 IU/L (10-60); AST ASPARTATE AMINOTRANSFERASE 19 IU/L (10-42); BILIRUBIN,TOTAL 0.5 mg/dL (0.2-1.0); BUN - BLOOD UREA NITROGEN 17 mg/dL (6-20); CALCIUM 10.1 mg/dL (8.5-10.3); CARBON DIOXIDE - CO2 32 mmol/L (21-32); CHLORIDE 105 mmol/L (101-111); CHOL/HDL RATIO 2.7 (<4.4); CHOLESTEROL 198 mg/dL; GFR - MDRD 56 (>89); GLUCOSE 84 mg/dL (74-104); HDL CHOLESTEROL 74 mg/dL; LDL CHOLESTEROL,CALCULATED 99 mg/dL; LDL/HDL RATIO 1.3 (<4.4); POTASSIUM 4.3 mmol/L (3.5-4.5); SODIUM 140 mmol/L (135-145); TOTAL PROTEIN 7.5 g/dL (6.4-8.9); TRIGLYCERIDES 127 mg/dL (48-352); VLDL CHOLESTEROL 25 mg/dL
== END 2023-06-06 10:08 | disposition home or self-care (01) ==
LOC: LAB.N 10:07
PROVIDERS: ATTEND Physician Assistant
DX: G47.33 Obstructive sleep apnea (adult) (pediatric) (principal); Z13.220 Encounter for screening for lipoid disorders
CPT/HCPCS: 36415; 80053; 80061; 83721; 85025

== ENCOUNTER 2023-06-24 08:00 | Outpatient (CLI) | payer OTHER ==
[2023-06-24 12:59] LABS: BILIRUBIN,URINE NEGATIVE (NEGATIVE); GLUCOSE, URINE (UA) NEGATIVE (NEGATIVE); KETONES,URINE (UA) NEGATIVE (NEGATIVE); LEUKOCYTE ESTERASE, URINE NEGATIVE (NEGATIVE); NITRITE,URINE NEGATIVE (NEGATIVE); OCCULT BLOOD,URINE NEGATIVE (NEGATIVE); PH,URINE 6.5 PH (5.0-7.5); PROTEIN,URINE NEGATIVE (NEGATIVE); UROBILINOGEN,URINE 0.2 (NORMAL) E.U./dL (NORMAL)
[2023-06-24 13:00] LABS: CLARITY,URINE CLEAR (CLEAR)
== END 2023-06-24 23:59 | disposition home or self-care (01) ==
LOC: LAB.N 08:00
PROVIDERS: ATTEND Physician Assistant
DX: R21 Rash and other nonspecific skin eruption (principal)
CPT/HCPCS: 81001; 81003; 87086

== ENCOUNTER 2023-06-27 08:00 | Outpatient (CLI) | payer OTHER | END 2023-06-27 23:59 | disposition home or self-care (01) | LOC: LAB 08:00 | PROVIDERS: ATTEND Physician Assistant | DX: J34.89 Other specified disorders of nose and nasal sinuses (principal); Z20.822 Contact with and (suspected) exposure to COVID-19 ==